=== PATIENT | female | born 1930 | race Caucasian/White ===

== ENCOUNTER 2018-10-22 12:51 | Observation (INO) | payer MEDICARE ==
[2018-10-22] MEDS ORDERED: MORPHINE SULFATE 4 MG/ML SYRINGE IV STA (13:01)
[2018-10-22] MEDS ORDERED: PANTOPRAZOLE 40 MG/10 ML VIAL IVP STA (13:01)
[2018-10-22] MEDS ORDERED: SODIUM CHLORIDE 0.9% 1,000 ML IV STA ×2 (13:01→18:57)
[2018-10-22 13:19] LABS: Basophils % (A) 1 %; Eosinophils # (A) 0.1 k/uL (0-0.7); Eosinophils % (A) 2 %; HCT 39.2 % (34.0-46.0); HGB 13.1 gm/dL (11.4-16.0); Lymphocytes # (A) 0.6 k/uL (1.0-4.8); Lymphocytes % (A) 12 %; MCH 32.1 pg (25.0-35.0); MCHC 33.4 g/dL (31.0-37.0); Mean Platelet Volume 6.2; Monocytes # (A) 0.3 k/uL (0-1.0); Monocytes % (A) 6 %; Neutrophils # (A) 3.5 k/uL (1.3-7.7); Neutrophils % (A) 77 %; Platelet Count 367 k/uL (150-450); RBC 4.08 m/uL (3.80-5.40); RDW 12.7 % (11.5-15.5); WBC 4.5 k/uL (3.8-10.6)
--- NOTE | 2018-10-22 13:21 | ED ---
Abdominal Pain HPI - General Chief Complaint: Abdominal Pain Stated Complaint: ABD pain Time Seen by Provider: 10/22/18 13:00 Source: EMS, RN notes reviewed, old records reviewed Mode of arrival: EMS Limitations: no limitations - History of Present Illness Initial Comments: This is a 87-year-old female the ER for evaluation. Patient resents today for e valuation regards to abdominal pain, abdominal pain times one week. Patient has no prior sustain denies injury. No fevers no nausea vomiting and she has decreased bowel movements times one week. Patient was seen emetics rest, steroids shot has no improvement in pain. No recent travel history no sick contacts no modifying factors for symptoms. Patient is eating appropriately with no nausea or vomiting MD Complaint: abdominal pain -: week(s) Location: diffuse, suprapubic Migration to: suprapubic Severity: moderate Severity scale (1-10): 4 Quality: cramping, aching Consistency: intermittent Improves With: bowel movement Worsens With: bowel movement - Related Data Previous Rx's Medication Instructions Recorded Polyethylene Glycol 3350 [Miralax] 17 gm PO BID #527 gm 10/22/18 Allergies Allergy/AdvReac Type Severity Reaction Status Date / Time No Known Allergies Allergy Verified 10/22/18 13:16 Review of Systems ROS Statement: Those systems with pertinent positive or pertinent negative responses have been documented in the HPI. ROS Other: All systems not noted in ROS Statement are negative. Past Medical History Past Medical History: Hypertension History of Any Multi-Drug Resistant Organisms: None Reported Past Surgical History: No Surgical Hx Reported Past Psychological History: No Psychological Hx Reported Smoking Status: Never smoker Past Alcohol Use History: None Reported Past Drug Use History: None Reported General Exam Limitations: no limitations General appearance: alert, in no apparent distress Head exam: Present: atraumatic, normocephalic, normal inspection Eye exam: Present: normal appearance, PERRL, EOMI. Absent: scleral icterus, conjunctival injection, periorbital swelling ENT exam: Present: normal exam, mucous membranes moist Neck exam: Present: normal inspection. Absent: tenderness, meningismus, ly mphadenopathy Respiratory exam: Present: normal lung sounds bilaterally. Absent: respiratory distress, wheezes, rales, rhonchi, stridor Cardiovascular Exam: Present: regular rate, normal rhythm, normal heart sounds. Absent: systolic murmur, diastolic murmur, rubs, gallop, clicks GI/Abdominal exam: Present: soft, normal bowel sounds. Absent: distended, tenderness, guarding, rebound, rigid Extremities exam: Present: normal inspection, full ROM, normal capillary refill. Absent: tenderness, pedal edema, joint swelling, calf tenderness Back exam: Present: normal inspection Neurological exam: Present: alert, oriented X3, CN II-XII intact Psychiatric exam: Present: normal affect, normal mood Skin exam: Present: warm, dry, intact, normal color. Absent: rash Course Vital Signs 10/22/18 10/22/18 10/22/18 13:11 16:00 18:14 Temperature 97.6 F Pulse Rate 76 81 75 Respiratory 16 16 18 Rate Blood Pressure 158/103 136/85 152/86 O2 Sat by Pulse 98 97 96 Oximetry - Reevaluation(s) Reevaluation #1: 10/22/18 16:55 Medical record is reviewed Reevaluation #2: 10/22/18 16:55 Patient given bowel regimen here in the ER including enema months sennosides Reevaluation #3: 10/22/18 16:55 Patient yet to have significant bowel movement here in the ER Reevaluation #4: 10/22/18 18:58 Patient bowel movement was not completely satisfactory, remains with abdominal pain and no significant bowel movement Medical Decision Making - Medical Decision Making 87 female the ER with severe constipation, patient had not had a significant bowel movement here in the ER will be placed on bowel regimen and admitted for evaluation and pain control - Lab Data Result diagrams: 10/22/18 13:02 10/22/18 13:02 Lab Results 10/22/18 10/22/18 10/22/18 Range/Units 13:02 13:02 13:02 WBC 4.5 (3.8-10.6) k/uL RBC 4.08 (3.80-5.40) m/uL Hgb 13.1 (11.4-16.0) gm/dL Hct 39.2 (34.0-46.0) % MCV 96.0 (80.0-100.0) fL MCH 32.1 (25.0-35.0) pg MCHC 33.4 (31.0-37.0) g/dL RDW 12.7 (11.5-15.5) % Plt Count 367 (150-450) k/uL Neutrophils % 77 % Lymphocytes % 12 % Monocytes % 6 % Eosinophils % 2 % Basophils % 1 % Neutrophils # 3.5 (1.3-7.7) k/uL Lymphocytes # 0.6 L (1.0-4.8) k/uL Monocytes # 0.3 (0-1.0) k/uL Eosinophils # 0.1 (0-0.7) k/uL Basophils # 0.0 (0-0.2) k/uL Sodium 137 (137-145) mmol/L Potassium 4.7 (3.5-5.1) mmol/L Chloride 101 (98-107) mmol/L Carbon Dioxide 27 (22-30) mmol/L Anion Gap 9 mmol/L BUN 14 (7-17) mg/dL Creatinine 0.66 (0.52-1.04) mg/dL Est GFR (CKD-EPI)AfAm >90 (>60 ml/min/1.73 sqM) Est GFR (CKD-EPI)NonAf 80 (>60 ml/min/1.73 sqM) Glucose 90 (74-99) mg/dL Plasma Lactic Acid Jeff (0.7-2.0) mmol/L Calcium 10.2 (8.4-10.2) mg/dL Total Bilirubin 0.7 (0.2-1.3) mg/dL AST 26 (14-36) U/L ALT 14 (9-52) U/L Alkaline Phosphatase 138 H (38-126) U/L Creatine Kinase 26 L (30-135) U/L Troponin I <0.012 (0.000-0.034) ng/mL Total Protein 7.8 (6.3-8.2) g/dL Albumin 4.5 (3.5-5.0) g/dL Amylase 61 (30-110) U/L Lipase 69 (23-300) U/L Urine Color Urine Appearance (Clear) Urine pH (5.0-8.0) Ur Specific [place] (1.001-1.035) Urine Protein (Negative) Urine Glucose (UA) (Negative) Urine Ketones (Negative) Urine Blood (Negative) Urine Nitrite (Negative) Urine Bilirubin (Negative) Urine Urobilinogen (<2.0) mg/dL Ur Leukocyte Esterase (Negative) 10/22/18 10/22/18 Range/Units 13:09 14:25 WBC (3.8-10.6) k/uL RBC (3.80-5.40) m/uL Hgb (11.4-16.0) gm/dL Hct (34.0-46.0) % MCV (80.0-100.0) fL MCH (25.0-35.0) pg MCHC (31.0-37.0) g/dL RDW (11.5-15.5) % Plt Count (150-450) k/uL Neutrophils % % Lymphocytes % % Monocytes % % Eosinophils % % Basophils % % Neutrophils # (1.3-7.7) k/uL Lymphocytes # (1.0-4.8) k/uL Monocytes # (0-1.0) k/uL Eosinophils # (0-0.7) k/uL Basophils # (0-0.2) k/uL Sodium (137-145) mmol/L Potassium (3.5-5.1) mmol/L Chloride (98-107) mmol/L Carbon Dioxide (22-30) mmol/L Anion Gap mmol/L BUN (7-17) mg/dL Creatinine (0.52-1.04) mg/dL Est GFR (CKD-EPI)AfAm (>60 ml/min/1.73 sqM) Est GFR (CKD-EPI)NonAf (>60 ml/min/1.73 sqM) Glucose (74-99) mg/dL Plasma Lactic Acid Jeff 1.0 (0.7-2.0) mmol/L Calcium (8.4-10.2) mg/dL Total Bilirubin (0.2-1.3) mg/dL AST (14-36) U/L ALT (9-52) U/L Alkaline Phosphatase (38-126) U/L Creatine Kinase (30-135) U/L Troponin I (0.000-0.034) ng/mL Total Protein (6.3-8.2) g/dL Albumin (3.5-5.0) g/dL Amylase (30-110) U/L Lipase (23-300) U/L Urine Color Colorless Urine Appearance Clear (Clear) Urine pH 8.0 (5.0-8.0) Ur Specific [place] 1.010 (1.001-1.035) Urine Protein Negative (Negative) Urine Glucose (UA) Negative (Negative) Urine Ketones Negative (Negative) Urine Blood Negative (Negative) Urine Nitrite Negative (Negative) Urine Bilirubin Negative (Negative) Urine Urobilinogen <2.0 (<2.0) mg/dL Ur Leukocyte Esterase Negative (Negative) - EKG Data -: EKG Interpreted by Me (EKG shows sinus rhythm rate of 60, HI 180, QRS 106, QTc 407) - Radiology Data Radiology results: report reviewed (CT abdomen pelvis show significant constipation), image reviewed Disposition Clinical Impression: Abdominal pain, Constipation Disposition: ADMITTED IP TO THIS [facility] Condition: Good Instructions (If sedation given, give patient instructions): Constipation (ED) Prescriptions: Polyethylene Glycol 3350 [Miralax] 17 gm PO BID #527 gm Is patient prescribed a controlled substance at d/c from ED?: No Referrals: Nando Velazquez MD [Primary Care Provider] - 1-2 days
[2018-10-22 13:28] LABS: ALT 14 U/L (9-52); AST 26 U/L (14-36); African American GFR (CKD) >90 (>60 ml/min/1.73 sqM); Albumin 4.5 g/dL (3.5-5.0); Alkaline Phosphatase 138 U/L (38-126); Amylase 61 U/L (30-110); Anion Gap 9 mmol/L; Blood Urea Nitrogen 14 mg/dL (7-17); Calcium 10.2 mg/dL (8.4-10.2); Carbon Dioxide 27 mmol/L (22-30); Chloride 101 mmol/L (98-107); Creatine Kinase 26 U/L (30-135); Glucose 90 mg/dL (74-99); Lipase 69 U/L (23-300); Potassium 4.7 mmol/L (3.5-5.1); Sodium 137 mmol/L (137-145); Total Bilirubin 0.7 mg/dL (0.2-1.3); Total Protein 7.8 g/dL (6.3-8.2)
--- NOTE | 2018-10-22 14:31 | CT ---
EXAMINATION TYPE: CT abdomen pelvis w con DATE OF EXAM: 10/22/2018 COMPARISON: 08/31/2013 HISTORY: Generalized abdominal and back pain. CT DLP: 516.7 mGycm CONTRAST: CT scan of the abdomen and pelvis is performed without Oral Contrast and with IV Contrast, patient in jected with 100 mL of Isovue 300. FINDINGS: LUNG BASES-: No visible nodule. No infiltrate. LIVER/GB: No calcified gallstones. No space occupying hepatic lesion. Biliary tree is of normal ca liber. PANCREAS: No inflammation. No distinct mass. SPLEEN: No splenic enlargement. No lesion seen. ADRENALS: No nodule. No thickening. KIDNEYS/BLADDER: No hydronephrosis. No nephrolithiasis. No distinct renal mass. Urinary bladder g rossly unremarkable. BOWEL: The appendix is not clearly visualized. Moderately severe constipation seen throughout the col on. Mild small bowel distention. No obstructive change. No free air or abscess identified. GENITAL ORGANS: No gross abnormality. LYMPH NODES: No greater than 1cm abdominal or pelvic lymph nodes are appreciated. AORTA: No significant abnormality. OSSEOUS STRUCTURES: Severe compression fractures of uncertain age and/or etiology of T12, L1 and L2 a nd moderate fracture of L5. Mild bony retropulsion noted at each site. No evidence for paraspinal hem atoma OTHER: No significant additional abnormality is seen. IMPRESSION: 1. Moderately severe constipation. 2. Severe compression fractures of uncertain age and/or etiology of T12, L1 and L2 and moderate fract ure of L5. Mild bony retropulsion noted at each site.
[2018-10-22] MEDS ORDERED: MAGNESIUM CITRATE 296 ML BOTTLE PO ONE (15:12)
[2018-10-22] MEDS ORDERED: SENNOSIDES-DOCUSATE SODIUM 1 EACH TAB PO STA (15:12)
[2018-10-22 15:34] LABS: Appearance,Urine Clear (Clear); Bilirubin,Urine Negative (Negative); Blood,Urine Negative (Negative); Color,Urine Colorless; Glucose,Urine (UA) Negative (Negative); Ketones,Urine Negative (Negative); Leukocyte Esterase,Urine Negative (Negative); Nitrite,Urine Negative (Negative); Protein,Urine Negative (Negative); Urobilinogen,Urine <2.0 mg/dL (<2.0)
[2018-10-22] MEDS ORDERED: SODIUM CHLORIDE 0.9% 1,000 ML IV ONE (18:55)
[2018-10-22] MEDS ORDERED: LACTULOSE 20 GM/30 ML CUP PO ONE (18:55)
[2018-10-22] MEDS ORDERED: SODIUM CHLORIDE 0.9% 500 ML 500 ML IV STA (18:57)
[2018-10-22 20:42] VITALS: BMI 20.9
[2018-10-22] MEDS: SENNOSIDES-DOCUSATE SODIUM 1 EACH TAB PO SCH (21:13)
[2018-10-22] MEDS: POLYETHYLENE GLYCOL 3350 17 GM POWD.PACK PO SCH (21:13)
[2018-10-23 08:09] VITALS: BP 138/78; PULSE 81; RESP 16; TEMP 98.2
[2018-10-23] MEDS: POLYETHYLENE GLYCOL 3350 17 GM POWD.PACK PO SCH (08:36)
[2018-10-23] MEDS: SENNOSIDES-DOCUSATE SODIUM 1 EACH TAB PO SCH (08:36)
[2018-10-23] MEDS ORDERED: POLYETHYLENE GLYCOL 3350 17 GM POWD.PACK PO SCH (09:00)
[2018-10-23] MEDS ORDERED: amLODIPine 10 MG TAB PO SCH (12:15)
[2018-10-23] MEDS ORDERED: ASPIRIN 81 MG PO SCH (12:15)
[2018-10-23] MEDS ORDERED: HYDROCHLOROTHIAZIDE 25 MG TAB PO SCH (12:15)
--- NOTE | 2018-10-23 12:23 | P.HPIM ---
History of Present Illness H&P Date: 10/23/18 Chief Complaint: constipation History of physical and discharge summary. This is an 87-year-old female one of Dr. Denton a previous medical history significant for hypertension and hypertensive cardiovascular disease with left ventricular hypertrophy, hyperlipidemia, history of esophageal stricture, overactive bladder, patient was scheduled to go for swallow evaluation and possible EGD and dilatation on , patient was brought into the emergency department yesterday because of significant constipation increased abdominal pain that lasted for about 1 week she stated that her last bowel movement was greater than 2 weeks ago but upon interviewing her daughter she stated that she did have a small bowel movement few days ago however she has been struggling with constipation for so many years and she has been slacking on taking her MiraLAX and stool softener and regular basis. Patient was given 2 enemas in the emergency department as well as magnesium citrate and milk of magnesia and she was given Dulcolax suppositories as well but she has not had a bowel movement for 7 hours while she is in the [facility] ended up getting admitted to the hospital for observation until she does have a bowel movement, she did have a computed tomography scan of the abdomen and pelvis that didn't show evidence of moderate constipation without evidence of any acute bowel obstruction, she did also have evidence of old lumbar vertebra fracture push the patient is aware off. Review of Systems Constitutional: Reports chronic pain, Reports fatigue, Reports weakness, Denies anorexia, Denies chronic headaches Eyes: denies blurred vision, denies bulging eye, denies decreased vision Ears: bilateral: decreased hearing Ears, nose, mouth and throat: Denies dysphagia, Denies neck lump, Denies swelling in throat, Denies sore throat Cardiovascular: Denies chest pain, Denies decreased exercise tolerance, Denies dyspnea on exertion, Denies lightheadedness, Denies rapid heart beat, Denies shortness of breath Respiratory: Denies congestion, Denies cough, Denies cough with sputum, Denies home oxygen, Denies sleep apnea, Denies snoring, Denies wheezing Gastrointestinal: Reports abdominal pain, Reports bloating, Denies coffee ground emesis, Denies excessive gas, Denies heartburn, Denies melena, Denies nausea, Denies vomiting Genitourinary: Denies dysuria, Denies hematuria Menstruation: Reports postmenopausal Musculoskeletal: Reports atrophy, Reports frequent falls, Reports gait dysfunction, Reports low back pain Musculoskeletal: absent: ankle pain, ankle stiffness, ankle swelling, elbow pain, elbow stiffness, elbow swelling, foot pain, foot stiffness, foot swelling, hand pain, hand stiffness, hand swelling, hip pain, hip stiffness, hip swelling, knee pain, knee stiffness, knee swelling, shoulder pain, shoulder stiffness, shoulder swelling, wrist pain, wrist stiffness, wrist swelling Integumentary: Denies pruritus, Denies rash Neurological: Denies numbness, Denies weakness Psychiatric: Denies anxiety, Denies depression Endocrine: Denies fatigue, Denies weight change Past Medical History Past Medical History: Coronary Artery Disease (CAD), GERD/Reflux, Hypertension, Myocardial Infarction ([place]), Osteoarthritis (OA) Additional Past Medical History / Comment(s): "esophagus stricture-appointment next thursday to widen it." Hypertension and hypertensive cardiovascular disease, overactive bladder, osteo-arthritis, esophageal stricture, CAD, [place], hard of hearing. Lumbar vertebra fracture spray History of Any Multi-Drug Resistant Organisms: None Reported Past Surgical History: Hysterectomy Additional Past Surgical History / Comment(s): Left arm ORIF. Bladder suspension surgery 2, hysterectomy, cataract surgery 2. Past Anesthesia/Blood Transfusion Reactions: No Reported Reaction Past Psychological History: No Psychological Hx Reported Smoking Status: Never smoker Past Alcohol Use History: None Reported Past Drug Use History: None Reported - Past Family History Mother Family Medical History: Coronary Artery Disease (CAD) (Mother at age of 88 from CAD.) Father Family Medical History: Cancer (Father at age 85 from prostate cancer.) Brother(s) Family Medical History: Blood Disorder (Patient had 3 brothers 2 of them from blood disorders and the other one from Alzheimer dementia.) Sister(s) Family Medical History: Cancer (Patient had 3 sisters one with colon cancer one from a supposes and the other one from heart disease.) Daughter(s) Family Medical History: No Reported History (Patient has one daughter who is healthy.) Son(s) Family Medical History: Coronary Artery Disease (CAD) (Patient has one son with CAD, CABG, and COPD.) Medications and Allergies Home Medications Medication Instructions Recorded Confirmed Type Aspirin [Rowan Aspirin EC] 81 mg PO DAILY 10/22/18 10/22/18 History Cholecalciferol (Vitamin D3) 5,000 unit PO DAILY 10/22/18 10/22/18 History [Vitamin D3] Dexamethasone 4 mg PO DAILY 10/22/18 10/22/18 History Famotidine 20 mg PO DAILY 10/22/18 10/22/18 History Hydrochlorothiazide 25 mg PO Q48H 10/22/18 10/22/18 History Mirabegron [Myrbetriq] 50 mg PO DAILY 10/22/18 10/22/18 History amLODIPine [Norvasc] 10 mg PO DAILY 10/22/18 10/22/18 History fentaNYL 12MCG/HR PATCH [Duragesic 1 patch TRANSDERM Q72H 10/22/18 10/22/18 History 12MCG/HR] traMADol HCL [Ultram] 25 mg PO TID 10/22/18 10/22/18 History Allergies Allergy/AdvReac Type Severity Reaction Status Date / Time No Known Allergies Allergy Verified 10/22/18 19:29 Physical Exam Vitals: Vital Signs Temp Pulse Pulse Resp BP BP Pulse Ox 10/23/18 08:00 98.2 F 81 16 138/78 95 10/23/18 03:14 18 10/22/18 23:48 97.7 F 82 18 157/70 97 10/22/18 23:47 17 10/22/18 20:00 97.9 F 76 16 170/72 97 10/22/18 19:24 17 10/22/18 18:14 75 18 152/86 96 10/22/18 16:00 81 16 136/85 97 10/22/18 13:11 97.6 F 76 16 158/103 98 Intake and Output 10/22/18 10/23/18 10/23/18 22:59 06:59 14:59 Output Total 1 5 Balance -1 -5 Output: Urine 2 Stool 1 3 Other: Voiding Method Bedside Commode Bedside Commode # Voids 1 1 1 # Bowel Movements 1 - Constitutional General appearance: mild distress, thin - EENT Eyes: anicteric sclerae, EOMI, PERRLA, no ptosis, no scleral icterus, normal appearance ENT: hard of hearing, NA/AT, normal oropharynx, no thrush Ears: bilateral: normal - Neck Neck: no lymphadenopathy, normal ROM, no rigidity, no stridor, no thyromegaly Carotids: bilateral: upstroke delayed Thyroid: bilateral: normal size - Respiratory Respiratory: bilateral: diminished, negative: dullness, rales, rhonchi, wheezing, prolonged expiration, prolonged inspiration - Cardiovascular Rhythm: regular Heart sounds: normal: S1, S2 Abnormal Heart Sounds: systolic murmur, no S3 Gallop, no S4 Gallop, no click - Gastrointestinal General gastrointestinal: normal bowel sounds, soft, no tenderness, no umbilical hernia, no ventral hernia - Integumentary Integumentary: normal, normal turgor - Neurologic Neurologic: CNII-XII intact - Musculoskeletal Musculoskeletal: generalized weakness, strength equal bilaterally - Psychiatric Psychiatric: A&O x's 3, appropriate affect, intact judgment & insight Results CBC & Chem 7: 10/22/18 13:02 10/22/18 13:02 Labs: Abnormal Lab Results - Last 24 Hours (Table) 10/22/18 10/22/18 Range/Units 13:02 13:02 Lymphocytes # 0.6 L (1.0-4.8) k/uL Alkaline Phosphatase 138 H (38-126) U/L Creatine Kinase 26 L (30-135) U/L Microbiology - Last 24 Hours (Table) 10/22/18 14:25 Urine Culture - Preliminary Urine,Voided Thrombosis Risk Factor Assmnt - DVT/VTE Prophylaxis DVT/VTE Prophylaxis: Mechanical Prophylaxis ordered - Choose All That Apply Any of the Below Risk Factors Present?: No Each Risk Factor Represents 3 Points: Age 75 years or older Other congenital or acquired thrombophilia - If yes, enter type in comment: No Thrombosis Risk Factor Assessment Total Risk Factor Score: 3 Thrombosis Risk Factor Assessment Level: Moderate Risk Assessment and Plan Assessment: Assessment and plan: 1. Moderate to severe constipation post the significant bowel regimen including enemas and magnesium citrate and milk of magnesia with finally good result. I had spoken with her daughter recommended MiraLAX every day along with Dulcolax to every day and stool softener daily basis as well and she is to follow-up with us in the office to start her on Symproic to the care of opioid-induced constip ation. 2. Hypertension and hypertensive cardio vascular disease. Continue patient on amlodipine 10 mg once every day and hydrochlorothiazide 25 mg orally once every day. 3. Osteoarthritis. Continue current pain management. 4. Osteoporosis with compression fracture in the lumbar vertebrae with chronic pain management currently on fentanyl patch as well as tramadol along with dexamethasone. 5. Overactive bladder. Continue with current management. 6. Esophageal stricture. Follow-up with GI as an outpatient on for possible EGD and the patient. 7. Patient is stable to be discharged home. 8. Follow-up with us as an outpatient in the office next Thursday.
[2018-10-23] MEDS ORDERED: traMADol 50 MG TAB PO SCH (16:00)
[2018-10-24] MEDS ORDERED: CHOLECALCIFEROL 1,000 UNIT TAB PO SCH (09:00)
[2018-10-24] MEDS ORDERED: FAMOTIDINE 20 MG TAB PO SCH (09:00)
[2018-10-24] MEDS ORDERED: DEXAMETHASONE 4 MG TAB PO SCH (09:00)
[2018-10-24] MEDS ORDERED: NON-FORMULARY DRUG (Mirabegron [Myrbetriq] 50 MG) PO SCH (09:00)
== END 2018-10-23 14:53 | disposition home or self-care (01) ==
LOC: EC 12:51 → 1SOBS 18:56
PROVIDERS: ADMIT Internal Medicine; ATTEND Internal Medicine
DX: K59.03 Drug induced constipation (principal); T40.2X5A Adverse effect of other opioids, initial encounter; I11.9 Hypertensive heart disease without heart failure; E78.5 Hyperlipidemia, unspecified; M80.08XA Age-related osteoporosis with current pathological fracture, vertebra(e), initial encounter for fracture; M19.90 Unspecified osteoarthritis, unspecified site; K21.9 Gastro-esophageal reflux disease without esophagitis; I25.10 Atherosclerotic heart disease of native coronary artery without angina pectoris; G89.29 Other chronic pain; M54.5 Low back pain; H91.90 Unspecified hearing loss, unspecified ear; K22.2 Esophageal obstruction; N32.81 Overactive bladder; I25.2 Old myocardial infarction; Z79.82 Long term (current) use of aspirin; Z79.891 Long term (current) use of opiate analgesic; Z79.52 Long term (current) use of systemic steroids; Z79.899 Other long term (current) drug therapy; Z90.710 Acquired absence of both cervix and uterus; Z98.42 Cataract extraction status, left eye; Z98.41 Cataract extraction status, right eye; Z82.49 Family history of ischemic heart disease and other diseases of the circulatory system; Z80.42 Family history of malignant neoplasm of prostate; Z80.0 Family history of malignant neoplasm of digestive organs; Z83.2 Family history of diseases of the blood and blood-forming organs and certain disorders involving the immune mechanism; Z82.5 Family history of asthma and other chronic lower respiratory diseases
CPT/HCPCS: 96360; 96361; 99285; 36415; 80053; 82150; 82550; 83605; 83690; 84484 ×2; 85025; 81003; 87086; 74177; G0378 ×2; Q9967

== ENCOUNTER 2019-10-15 07:33 | Inpatient (IN) | payer MEDICARE ==
--- NOTE | 2019-10-15 07:49 | ED ---
Fall HPI - General Source: patient, EMS, RN notes reviewed Mode of arrival: EMS Limitations: physical limitation <Isidro Hamilton - Last Filed: 10/15/19 08:33> <Osvaldo Talbert - Last Filed: 10/15/19 10:02> - General Chief Complaint: Fall Stated Complaint: Fall, R hip Injury Time Seen by Provider: 10/15/19 07:41 - History of Present Illness Initial Comments: This is an 88-year-old female presents emergency Department chief complaint of a trip and fall. She states she had a mechanical fall onto her right hip. Patiyandel nt states that she has pain on inside of her right hip. She does complain of mild head pain does not remember hitting it. Patient does have an area of bruising. Denies any blurred vision. Patient has no complaints of upper extremity injury, back pain. She denies knowing if she takes a blood thinner at this time. Denies any paresthesias. Denies any syncopal episode no chest pain or shortness breath. Patient states that her pain is very mild, does not want any pain minutes at time states she is taking at home. (Isidro Hamilton) - Related Data Home Medications Medication Instructions Recorded Confirmed Aspirin [[place] Aspirin EC] 81 mg PO DAILY 10/22/18 10/22/18 Cholecalciferol (Vitamin D3) 5,000 unit PO DAILY 10/22/18 10/22/18 [Vitamin D3] Dexamethasone 4 mg PO DAILY 10/22/18 10/22/18 Famotidine 20 mg PO DAILY 10/22/18 10/22/18 Hydrochlorothiazide 25 mg PO Q48H 10/22/18 10/22/18 Mirabegron [Myrbetriq] 50 mg PO DAILY 10/22/18 10/22/18 amLODIPine [Norvasc] 10 mg PO DAILY 10/22/18 10/22/18 fentaNYL 12MCG/HR PATCH [Duragesic 1 patch TRANSDERM Q72H 10/22/18 10/22/18 12MCG/HR] traMADol HCL [Ultram] 25 mg PO TID 10/22/18 10/22/18 Previous Rx's Medication Instructions Recorded Polyethylene Glycol 3350 [Miralax] 17 gm PO BID powd.pack 10/23/18 Sennosides-Docusate Sodium 1 each PO BID tab 10/23/18 [Senokot-S] Allergies Allergy/AdvReac Type Severity Reaction Status Date / Time No Known Allergies Allergy Verified 10/22/18 19:29 Review of Systems ROS Other: All systems not noted in ROS Statement are negative. <Isidro Hamilton - Last Filed: 10/15/19 08:33> ROS Other: All systems not noted in ROS Statement are negative. <Osvaldo Talbert - Last Filed: 10/15/19 10:02> ROS Statement: Those systems with pertinent positive or pertinent negative responses have been documented in the HPI. Past Medical History Past Medical History: Coronary Artery Disease (CAD), GERD/Reflux, Hypertension, Myocardial Infarction ([place]), Osteoarthritis (OA) Additional Past Medical History / Comment(s): "esophagus stricture-appointment next thursday to widen it." Hypertension and hypertensive cardiovascular disease, overactive bladder, osteo-arthritis, esophageal stricture, CAD, [place], hard of hearing. Lumbar vertebra fracture spray History of Any Multi-Drug Resistant Organisms: None Reported Past Surgical History: Hysterectomy Additional Past Surgical History / Comment(s): Left arm ORIF. Bladder suspension surgery 2, hysterectomy, cataract surgery 2. Past Anesthesia/Blood Transfusion Reactions: No Reported Reaction Past Psychological History: No Psychological Hx Reported Smoking Status: Never smoker Past Alcohol Use History: None Reported Past Drug Use History: None Reported - Past Family History Mother Family Medical History: Coronary Artery Disease (CAD) (Mother at age of 88 from CAD.) Father Family Medical History: Cancer (Father at age 85 from prostate cancer.) Brother(s) Family Medical History: Blood Disorder (Patient had 3 brothers 2 of them from blood disorders and the other one from Alzheimer dementia.) Sister(s) Family Medical History: Cancer (Patient had 3 sisters one with colon cancer one from a supposes and the other one from heart disease.) Daughter(s) Family Medical History: No Reported History (Patient has one daughter who is healthy.) Son(s) Family Medical History: Coronary Artery Disease (CAD) (Patient has one son with CAD, CABG, and COPD.) <Isidro Hamilton - Last Filed: 10/15/19 08:33> General Exam Limitations: no limitations General appearance: alert, in no apparent distress Head exam: Present: atraumatic, normocephalic. Absent: normal inspection (Small hematoma on the right side of forehead) Eye exam: Present: normal appearance, PERRL, EOMI. Absent: scleral icterus, conjunctival injection, periorbital swelling Neck exam: Present: normal inspection, full ROM. Absent: tenderness, meningismus, lymphadenopathy Respiratory exam: Present: normal lung sounds bilaterally. Absent: respiratory distress, wheezes, rales, rhonchi, stridor Cardiovascular Exam: Present: regular rate, normal rhythm, normal heart sounds. Absent: systolic murmur, diastolic murmur, rubs, gallop, clicks Extremities exam: Present: other (Tenderness the right hip there is mild external rotation noted pulses equal bilaterally lower extremities.) Neurological exam: Present: alert, oriented X3, CN II-XII intact, reflexes normal. Absent: motor sensory deficit Skin exam: Present: warm, dry, intact, normal color. Absent: rash <Isidro Hamilton - Last Filed: 10/15/19 08:33> Course Vital Signs 10/15/19 10/15/19 10/15/19 07:35 08:00 08:30 Temperature 98.2 F Pulse Rate 75 70 72 Respiratory 18 17 17 Rate Blood Pressure 173/72 173/72 O2 Sat by Pulse 96 95 95 Oximetry 10/15/19 10/15/19 09:00 09:30 Temperature Pulse Rate 74 71 Respiratory 17 17 Rate Blood Pressure 149/65 158/64 O2 Sat by Pulse 95 95 Oximetry Medical Decision Making <Isidro Hamilton - Last Filed: 10/15/19 08:33> - Lab Data Result diagrams: 10/15/19 08:52 10/15/19 08:52 <Osvaldo Talbert - Last Filed: 10/15/19 10:02> - Medical Decision Making Case discussed with neck branch on-call for Dr. Gar recommends patient be admitted, consult to medicine (Isidro Hamilton) Patient reevaluated and reexamined by myself, Dr. Talbert. I do agree with PAs findings. This includes diagnostic interpretation treatment plan. Patient updated. Films reviewed. (Osvaldo Talbert) - Lab Data Lab Results 10/15/19 10/15/19 10/15/19 Range/Units 08:52 08:52 08:52 WBC 5.0 (3.8-10.6) k/uL RBC 3.76 L (3.80-5.40) m/uL Hgb 12.1 (11.4-16.0) gm/dL Hct 38.6 (34.0-46.0) % MCV 102.4 H (80.0-100.0) fL MCH 32.0 (25.0-35.0) pg MCHC 31.3 (31.0-37.0) g/dL RDW 12.3 (11.5-15.5) % Plt Count 340 (150-450) k/uL Neutrophils % 78 % Lymphocytes % 12 % Monocytes % 5 % Eosinophils % 3 % Basophils % 1 % Neutrophils # 3.9 (1.3-7.7) k/uL Lymphocytes # 0.6 L (1.0-4.8) k/uL Monocytes # 0.3 (0-1.0) k/uL Eosinophils # 0.1 (0-0.7) k/uL Basophils # 0.0 (0-0.2) k/uL PT 10.7 (9.0-12.0) sec INR 1.0 (<1.2) APTT 24.6 (22.0-30.0) sec Sodium 133 L (137-145) mmol/L Potassium 3.7 (3.5-5.1) mmol/L Chloride 97 L (98-107) mmol/L Carbon Dioxide 29 (22-30) mmol/L Anion Gap 7 mmol/L BUN 20 H (7-17) mg/dL Creatinine 0.68 (0.52-1.04) mg/dL Est GFR (CKD-EPI)AfAm >90 (>60 ml/min/1.73 sqM) Est GFR (CKD-EPI)NonAf 79 (>60 ml/min/1.73 sqM) Glucose 103 H (74-99) mg/dL Calcium 9.1 (8.4-10.2) mg/dL Total Bilirubin 0.3 (0.2-1.3) mg/dL AST 30 (14-36) U/L ALT 14 (4-34) U/L Alkaline Phosphatase 118 (38-126) U/L Total Protein 7.0 (6.3-8.2) g/dL Albumin 3.3 L (3.5-5.0) g/dL Disposition <Dedoe,Isidro M - Last Filed: 10/15/19 08:33> <Osvaldo Talbert - Last Filed: 10/15/19 10:02> Clinical Impression: Fall, Closed right hip fracture Disposition: ADMITTED IP TO THIS HOSP Condition: Fair Referrals: Nando Velazquez MD [Primary Care Provider] - 1-2 days
[2019-10-15] MEDS ORDERED: ONDANSETRON 4 MG/2 ML VIAL IVP PRN (08:33)
[2019-10-15] MEDS ORDERED: NALOXONE 0.4 MG/ML 1 ML VIAL IV PRN (08:33)
--- NOTE | 2019-10-15 08:50 | XR ---
EXAMINATION TYPE: XR Hip RT and AP Pelvis , 3 VIEWS DATE OF EXAM ORDERED: 10/15/2019 HISTORY: fall, pain. COMPARISON: None. FINDINGS: The bones are quite osteopenic, likely on the basis of osteoporosis. The right hip is inad equately assessed on this examination. It would be difficult to exclude a subcapital fracture. IMPRESSION: STUDY LIMITED BY EXTREME OSTEOPENIA. A CT SCAN OF THE RIGHT HIP WOULD BE SUGGESTED.
--- NOTE | 2019-10-15 08:53 | XR ---
EXAMINATION TYPE: XR chest 1V DATE OF EXAM: 10/15/2019 HISTORY: FALL. REFERENCE: NONE. FINDINGS: The lungs are overinflated. The heart is enlarged. There is vascular congestion without fra nk edema. There is some atelectatic change of both lungs. There is blunting of the right CP angle. I could not exclude a small right effusion. IMPRESSION: 1. COPD. 2. CARDIOMEGALY. 3. I COULD NOT EXCLUDE A SMALL RIGHT EFFUSION. 4. VASCULAR CONGESTION.
--- NOTE | 2019-10-15 09:03 | CT ---
EXAMINATION TYPE: CT brain wilmerine wo con DATE OF EXAM: 10/15/2019 COMPARISON: NONE HISTORY: Fall, bruising Rt forehead area CT DLP: 1292.6 mGycm Automated exposure control for dose reduction was used. TECHNIQUE: CT scan of the head and cervical spine are performed without contrast. FINDINGS: BRAIN: There are generalized changes of sulcal prominence and ventriculomegaly, compatible with atrop hy. There is diffuse periventricular white matter lucency compatible with small vessel ischemic waters e. There is no acute focal lesion, mass effect or midline shift identified. I do not see evidence of intracranial blood. Visualized portions of the paranasal sinuses and mastoids are clear. The bony calvarium is intact. IMPRESSION: 1. NO ACUTE INTRACRANIAL ABNORMALITY. 2. ATROPHY. 3. CHRONIC WHITE MATTER ISCHEMIC CHANGE. CERVICAL SPINE: There is scarring or atelectasis in the upper lobes bilaterally. There is ectasia of the ascending thoracic aorta with maximal transverse diameter 3.1 cm. The trachea is bowed around the aorta. There is extreme kyphosis within the spine. This study is inadequate to assess for protrusions. Verte bral body height and alignment is maintained. Atlantoaxial relationships are normal. No gross fractur e is seen but 2 axial views of the spine were not obtained. Views obtained are largely coronal. There is degenerative change, most marked at C6-7. IMPRESSION: 1. 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 2. DEGENERATIVE CHANGE. 3. NO GROSS FRACTURE IS SEEN.
[2019-10-15 09:08] LABS: Basophils % (A) 1 %; Eosinophils # (A) 0.1 k/uL (0-0.7); Eosinophils % (A) 3 %; HCT 38.6 % (34.0-46.0); HGB 12.1 gm/dL (11.4-16.0); Lymphocytes # (A) 0.6 k/uL (1.0-4.8); Lymphocytes % (A) 12 %; MCHC 31.3 g/dL (31.0-37.0); MCV 102.4 fL (80.0-100.0); Mean Platelet Volume 6.7; Monocytes # (A) 0.3 k/uL (0-1.0); Monocytes % (A) 5 %; Neutrophils # (A) 3.9 k/uL (1.3-7.7); Neutrophils % (A) 78 %; Platelet Count 340 k/uL (150-450); RBC 3.76 m/uL (3.80-5.40); RDW 12.3 % (11.5-15.5)
--- NOTE | 2019-10-15 09:16 | CT ---
EXAMINATION TYPE: CT hip RT wo con DATE OF EXAM: 10/15/2019 COMPARISON: None. HISTORY: Right hip fracture/inury CT DLP: 366 mGycm Automated exposure control for dose reduction was used. FINDINGS: There is a mildly displaced and comminuted intertrochanteric fracture of the right. The les ser trochanter has been avulsed. The acetabulum appears intact. There is a large amount of stool within the colon. IMPRESSION: MILDLY DISPLACED AND COMMINUTED INTERTROCHANTERIC FRACTURE OF THE RIGHT.
[2019-10-15 09:21] LABS: Partial Thromboplastin Time 24.6 sec (22.0-30.0); Prothrombin Time 10.7 sec (9.0-12.0)
[2019-10-15 09:28] LABS: ALT 14 U/L (4-34); AST 30 U/L (14-36); African American GFR (CKD) >90 (>60 ml/min/1.73 sqM); Albumin 3.3 g/dL (3.5-5.0); Alkaline Phosphatase 118 U/L (38-126); Anion Gap 7 mmol/L; Blood Urea Nitrogen 20 mg/dL (7-17); Calcium 9.1 mg/dL (8.4-10.2); Carbon Dioxide 29 mmol/L (22-30); Chloride 97 mmol/L (98-107); Glucose 103 mg/dL (74-99); Non-African American GFR(CKD) 79 (>60 ml/min/1.73 sqM); Potassium 3.7 mmol/L (3.5-5.1); Sodium 133 mmol/L (137-145); Total Bilirubin 0.3 mg/dL (0.2-1.3)
--- NOTE | 2019-10-15 11:15 | P.CONS ---
History of Present Illness - Reason for Consult Consult date: 10/15/19 Medical management - History of Present Illness This is a 88-year-old patient of Dr. Denton'rudy being seen in the emergency room following a fall at [facility]. Patient was getting up from her wheelchair to ambulate to the bathroom when she tripped over the wheelchair landing on her right hip. While patient was lying on the floor she experienced severe right groin and hip pain. Patient was found to have right hip shortened and externally rotated. She will possibly have surgery tomorrow. Patient is also complaining of head discomfort. However she does not remember hitting her head. Patient denies loss of consciousness or syncope prior to the fall. 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 The sentinel patch was recently increased to 25 mcg/hour however she has not started the new patch. Review of Systems Constitutional: Reports chronic pain, Denies chills, Denies chronic headaches, Denies fatigue, Denies fever Eyes: denies blurred vision, denies pain Ears: bilateral: decreased hearing Ears, nose, mouth and throat: Reports headache, Denies sore throat Cardiovascular: Denies chest pain, Denies shortness of breath Respiratory: Denies cough Gastrointestinal: Denies abdominal pain, Denies diarrhea, Denies nausea, Denies vomiting Genitourinary: Denies dysuria, Denies hematuria Musculoskeletal: Reports fractures, Reports frequent falls, Reports limitation of motion, Reports low back pain Musculoskeletal: right: hip pain Integumentary: Denies pruritus, Denies rash Neurological: Denies numbness, Denies weakness Psychiatric: Denies anxiety, Denies depression Endocrine: Denies fatigue, Denies weight change Hematologic/Lymphatic: Denies easy bleeding, Denies easy bruising Past Medical History Past Medical History: Coronary Artery Disease (CAD), GERD/Reflux, Hypertension, Myocardial Infarction ([place]), Osteoarthritis ([place]) Additional Past Medical History / Comment(s): "esophagus stricture-appointment next thursday to widen it." Hypertension and hypertensive cardiovascular disease, overactive bladder, osteo-arthritis, esophageal stricture, CAD, [place], hard of hearing. Lumbar vertebra fracture spray History of Any Multi-Drug Resistant Organisms: None Reported Past Surgical History: Hysterectomy Additional Past Surgical History / Comment(s): Left arm ORIF. Bladder suspension surgery 2, hysterectomy, cataract surgery 2. Past Anesthesia/Blood Transfusion Reactions: No Reported Reaction Past Psychological History: No Psychological Hx Reported Smoking Status: Never smoker Past Alcohol Use History: None Reported Past Drug Use History: None Reported - Past Family History Mother Family Medical History: Coronary Artery Disease (CAD) (Mother at age of 88 from CAD.) Father Family Medical History: Cancer (Father at age 85 from prostate cancer.) Brother(s) Family Medical History: Blood Disorder (Patient had 3 brothers 2 of them from blood disorders and the other one from Alzheimer dementia.) Sister(s) Family Medical History: Cancer (Patient had 3 sisters one with colon cancer one from a supposes and the other one from heart disease.) Daughter(s) Family Medical History: No Reported History (Patient has one daughter who is healthy.) Son(s) Family Medical History: Coronary Artery Disease (CAD) (Patient has one son with CAD, CABG, and COPD.) Medications and Allergies Home Medications Medication Instructions Recorded Confirmed Type Aspirin [[place] Aspirin EC] 81 mg PO DAILY 10/22/18 10/22/18 History Cholecalciferol (Vitamin D3) 5,000 unit PO DAILY 10/22/18 10/22/18 History [Vitamin D3] Dexamethasone 4 mg PO DAILY 10/22/18 10/22/18 History Famotidine 20 mg PO DAILY 10/22/18 10/22/18 History Hydrochlorothiazide 25 mg PO Q48H 10/22/18 10/22/18 History Mirabegron [Myrbetriq] 50 mg PO DAILY 10/22/18 10/22/18 History amLODIPine [Norvasc] 10 mg PO DAILY 10/22/18 10/22/18 History fentaNYL 12MCG/HR PATCH [Duragesic 1 patch TRANSDERM Q72H 10/22/18 10/22/18 History 12MCG/HR] traMADol HCL [Ultram] 25 mg PO TID 10/22/18 10/22/18 History Polyethylene Glycol 3350 [Miralax] 17 gm PO BID powd.pack 10/23/18 Rx Sennosides-Docusate Sodium 1 each PO BID tab 10/23/18 Rx [Senokot-S] Allergies Allergy/AdvReac Type Severity Reaction Status Date / Time No Known Allergies Allergy Verified 10/22/18 19:29 Physical Exam Vitals: Vital Signs Temp Pulse Resp BP Pulse Ox 10/15/19 09:30 71 17 158/64 95 10/15/19 09:00 74 17 149/65 95 10/15/19 08:30 72 17 95 10/15/19 08:00 70 17 173/72 95 10/15/19 07:35 98.2 F 75 18 173/72 96 Intake and Output 10/14/19 10/15/19 10/15/19 22:59 06:59 14:59 Other: Weight 43.091 kg - Constitutional General appearance: cooperative, mild distress - EENT Eyes: PERRLA ENT: hearing grossly normal Ears: bilateral: normal - Neck Neck: no lymphadenopathy - Respiratory Respiratory: bilateral: CTA, negative: diminished, dullness, rales, rhonchi, wheezing - Cardiovascular Rhythm: regular Heart sounds: normal: S1, S2 Abnormal Heart Sounds: no systolic murmur, no diastolic murmur, no rub, no S3 Gallop, no S4 Gallop, no click, no other - Gastrointestinal General gastrointestinal: no organomegaly, soft, no tenderness - Integumentary Integumentary: no cellulitis, decreased turgor, normal - Neurologic Neurologic: CNII-XII intact - Musculoskeletal Right lower extremity shortened with external rotation tenderness to right hip pulses palpable bilaterally - Psychiatric Psychiatric: A&O x's 3, appropriate affect, intact judgment & insight Results CBC & Chem 7: 10/15/19 08:52 10/15/19 08:52 Labs: Abnormal Lab Results - Last 24 Hours (Table) 10/15/19 10/15/19 Range/Units 08:52 08:52 RBC 3.76 L (3.80-5.40) m/uL MCV 102.4 H (80.0-100.0) fL Lymphocytes # 0.6 L (1.0-4.8) k/uL Sodium 133 L (137-145) mmol/L Chloride 97 L (98-107) mmol/L BUN 20 H (7-17) mg/dL Glucose 103 H (74-99) mg/dL Albumin 3.3 L (3.5-5.0) g/dL Assessment and Plan Plan: 1. Fall with right hip fracture. Orthopedics to perform surgery possibly tomorrow. [place] one tablet every 4 hours as needed for pain, morphine 4 mg IV every 4 hours needed for pain. Patient is optimized for surgery at this time with a moderate cardiac risk. 2. Right hip fracture. As noted above 3. Coronary artery disease. Metoprolol 12.5 mg daily 4. Hypertension continue Norvasc 10 mg by mouth, continue hydrochlorothiazide 25 mg every 48 hours 5. GERD. Continue Pepcid 20 mg 6. History of [place]. Metoprolol 12.5 mg daily 7. Osteoarthritis. Hold Fentanyl patch increased dose to 25mcg/hr 8. Overactive bladder. Hold myrbetriq 9. GI prophylaxis. Pepcid 10. DVT prophylaxis. 11. COVID-19 infection is pending Discharge plan: Subacute rehab facility Impression and plan of care have been directed as dictated by the signing physician. Minda Weber nurse practitioner acting as scribe for signing physician.
[2019-10-15 11:40] LABS: Appearance,Urine Clear (Clear); Bilirubin,Urine Negative (Negative); Blood,Urine Negative (Negative); Color,Urine Light Yellow; Glucose,Urine (UA) Negative (Negative); Ketones,Urine Negative (Negative); Leukocyte Esterase,Urine Negative (Negative); Nitrite,Urine Negative (Negative); PH, Urine 7.5 (5.0-8.0); Protein,Urine Negative (Negative); Specific Gravity,Urine 1.009 (1.001-1.035); Urobilinogen,Urine <2.0 mg/dL (<2.0)
[2019-10-15] MEDS: HYDROCHLOROTHIAZIDE 25 MG TAB PO SCH (12:24)
[2019-10-15] MEDS: METOPROLOL TARTRATE 12.5 MG TAB PO SCH (12:24)
[2019-10-15] MEDS: HYDROcodone/APAP 5-325MG 1 EACH TAB PO PRN ×2 (12:30→20:17)
--- NOTE | 2019-10-15 12:32 | P.HPOR ---
History of Present Illness H&P Date: 10/15/19 Chief Complaint: Right intertrochanteric femur fracture Patient is an 88-year-old female who presented to [facility] early this morning after falling. Patient is a resident at [facility], she apparently was transferring from her wheelchair when she fell in her room. She was unable to weight-bear after the fall, EMS did bring the patient to the hospital. Upon arrival, imaging and lab tests were done. Images demonstrated a right intertrochanteric femur fracture. I was contacted by the emergency room staff regarding the patient, she was admitted under orthopedic care. Patient was evaluated today at bedside by myself and Dr. Cox. She is resting comfortably. She notes pain in the right lower extremity with movement. She has no some other significant orthopedic complaints this time. She denies any previous surgery involving the right lower extremity. She has a known history of osteoarthritis, she has seen Dr. Marino in the outpatient setting for her right knee which she has received injections. She does take tramadol and also a fentanyl patch for pain control for osteoarthritis. Currently denies any chest pain, shortness of breath, fever or chills, paresthesias in the lower extremity. Review of Systems Constitutional: Reports as per HPI Past Medical History Past Medical History: Coronary Artery Disease (CAD), GERD/Reflux, Hypertension, Myocardial Infarction ([place]), Osteoarthritis ([place]) Additional Past Medical History / Comment(s): "esophagus stricture-appointment next thursday to widen it." Hypertension and hypertensive cardiovascular disease, overactive bladder, osteo-arthritis, esophageal stricture, CAD, [place], hard of hearing. Lumbar vertebra fracture Last Myocardial Infarction Date:: unsure History of Any Multi-Drug Resistant Organisms: None Reported Past Surgical History: Hysterectomy Additional Past Surgical History / Comment(s): Left arm ORIF. Bladder suspension surgery 2, hysterectomy, cataract surgery 2. Past Anesthesia/Blood Transfusion Reactions: No Reported Reaction Past Psychological History: No Psychological Hx Reported Smoking Status: Never smoker Past Alcohol Use History: None Reported Past Drug Use History: None Reported - Past Family History Mother Family Medical History: Coronary Artery Disease (CAD) Father Family Medical History: Cancer Brother(s) Family Medical History: Blood Disorder Sister(s) Family Medical History: Cancer Daughter(s) Family Medical History: No Reported History Son(s) Family Medical History: Coronary Artery Disease (CAD) Medications and Allergies Home Medications Medication Instructions Recorded Confirmed Type Aspirin [[place] Aspirin EC] 81 mg PO DAILY 10/22/18 10/22/18 History Cholecalciferol (Vitamin D3) 5,000 unit PO DAILY 10/22/18 10/22/18 History [Vitamin D3] Dexamethasone 4 mg PO DAILY 10/22/18 10/22/18 History Famotidine 20 mg PO DAILY 10/22/18 10/22/18 History Hydrochlorothiazide 25 mg PO Q48H 10/22/18 10/22/18 History Mirabegron [Myrbetriq] 50 mg PO DAILY 10/22/18 10/22/18 History amLODIPine [Norvasc] 10 mg PO DAILY 10/22/18 10/22/18 History fentaNYL 12MCG/HR PATCH [Duragesic 1 patch TRANSDERM Q72H 10/22/18 10/22/18 History 12MCG/HR] traMADol HCL [Ultram] 25 mg PO TID 10/22/18 10/22/18 History Polyethylene Glycol 3350 [Miralax] 17 gm PO BID powd.pack 10/23/18 Rx Sennosides-Docusate Sodium 1 each PO BID tab 10/23/18 Rx [Senokot-S] Allergies Allergy/AdvReac Type Severity Reaction Status Date / Time No Known Allergies Allergy Verified 10/15/19 12:21 Physical Examination Right lower extremity: No open lesions or sores visualize, no significant areas of soft tissue swelling or erythema Obvious shortening and external rotation of the leg compared to the contralateral side She is unable to straight leg raise, lot reproduces pain Minimal tenderness around the knee with palpation, no tenderness around the foot or ankle Calf is soft, no tenderness with palpation Plantar flexion, dorsiflexion, EHL, FHL are intact Sensory exam to light touch throughout the extremities intact, dorsalis pedis pulses 2+ Results - Labs Labs: Abnormal Lab Results - Last 24 Hours (Table) 10/15/19 10/15/19 Range/Units 08:52 08:52 RBC 3.76 L (3.80-5.40) m/uL MCV 102.4 H (80.0-100.0) fL Lymphocytes # 0.6 L (1.0-4.8) k/uL Sodium 133 L (137-145) mmol/L Chloride 97 L (98-107) mmol/L BUN 20 H (7-17) mg/dL Glucose 103 H (74-99) mg/dL Albumin 3.3 L (3.5-5.0) g/dL H & H 10/15/19 Range/Units 08:52 Hgb 12.1 (11.4-16.0) gm/dL Hct 38.6 (34.0-46.0) % Coagulation 10/15/19 Range/Units 08:52 INR 1.0 (<1.2) Result Diagrams: 10/15/19 08:52 10/15/19 08:52 - Diagnostic results Hip x-ray: report reviewed, image reviewed Hip CT: report reviewed, image reviewed Assessment and Plan Assessment: Displaced and comminuted right intertrochanteric femur fracture Status post fall Other medical comorbidities Plan: X-rays and computed tomography scan were reviewed of the right hip. Images to demonstrate a displaced and comminuted right intertrochanteric femur fracture Our plan is to proceed with a intramedullary nail of the right femur on 10/16/2019 Risk and benefits of the procedure were discussed with the patient today at bedside, she is in good understanding and would like to proceed. I discussed with her that I would recheck after her daughter regarding this treatment plan Obtain consent Pain control GI and DVT prophylaxis, despite subcu medication after surgery Nothing by mouth after midnight Nonweightbearing at this time Physical therapy evaluation after surgery Subacute rehab likely after surgery Further recommendations to follow
[2019-10-15 13:51] VITALS: BMI 19.1
[2019-10-15] MEDS: DEXTROSE 5%-0.45% NACL 1,000 ML IV SCH (18:15)
[2019-10-15] MEDS: POLYETHYLENE GLYCOL 3350 17 GM POWD.PACK PO SCH (21:52)
[2019-10-15] MEDS: SENNOSIDES-DOCUSATE SODIUM 1 EACH TAB PO SCH (21:52)
[2019-10-15] MEDS: MORPHINE SULFATE 4 MG/ML SYRINGE IV PRN (23:51)
[2019-10-16] MEDS: MORPHINE SULFATE 4 MG/ML SYRINGE IV PRN ×2 (04:01→08:11)
[2019-10-16] MEDS: METOPROLOL TARTRATE 12.5 MG TAB PO SCH (08:10)
[2019-10-16] MEDS: amLODIPine 10 MG TAB PO SCH (08:10)
--- NOTE | 2019-10-16 09:16 | P.PN ---
Subjective Progress Note Date: 10/16/19 This is a 88-year-old patient of Dr. Denton's being seen in the emergency room following a fall at [facility]. Patient was getting up from her wheelchair to ambulate to the bathroom when she tripped over the wheelchair landing on her right hip. While patient was lying on the floor she experienced severe right groin and hip pain. Patient was found to have right hip shortened and externally rotated. She will possibly have surgery tomorrow. Patient is also complaining of head discomfort. However she does not remember hitting her head. Patient denies loss of consciousness or syncope prior to the fall. 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 The sentinel patch was recently increased to 25 mcg/hour however she has not started the new patch. 10/16/2019: Patient is scheduled for surgery today. She is resting comfortably in bed without any complaints or concerns expressed. Patient in no acute distress. Patient states that her pain has been managed well. Blood pressure 128/70, heart rate 63, respirations 17, temperature 98.4, 92% on room air. CBC 5.0, hemoglobin 12.1, potassium 3.7, BUN 20, creatinine 0.68 Review of Systems Constitutional: Reports chronic pain, Denies chills, Denies chronic headaches, Denies fatigue, Denies fever Eyes: denies blurred vision, denies pain Ears: bilateral: decreased hearing Ears, nose, mouth and throat: Reports headache, Denies sore throat Cardiovascular: Denies chest pain, Denies shortness of breath Respiratory: Denies cough Gastrointestinal: Denies abdominal pain, Denies diarrhea, Denies nausea, Denies vomiting Genitourinary: Denies dysuria, Denies hematuria Musculoskeletal: Reports fractures, Reports frequent falls, Reports limitation of motion, Reports low back pain Musculoskeletal: right: hip pain Integumentary: Denies pruritus, Denies rash Neurological: Denies numbness, Denies weakness Psychiatric: Denies anxiety, Denies depression Endocrine: Denies fatigue, Denies weight change Hematologic/Lymphatic: Denies easy bleeding, Denies easy bruising Objective - Vital Signs Vital signs: Vital Signs Temp 98.4 F 10/16/19 04:09 Pulse 63 10/16/19 04:09 Resp 17 10/16/19 04:09 BP 128/70 10/16/19 04:09 Pulse Ox 92 L 10/16/19 04:09 Intake & Output 10/15/19 10/16/19 10/16/19 18:59 06:59 18:59 Intake Total 200 Output Total 840 1475 Balance -640 -1475 Weight 43.091 kg Intake: Oral 200 Output: Urine 840 1475 Uretheral (Dawn) 840 Other: Voiding Method Indwelling Catheter Indwelling Catheter Indwelling Catheter - Exam General Appearance: 88-year-old female lying in bed Alert, cooperative, no distress, appears stated age. Neck HEENT: Supple, no lymphadenopathy, no thyroid enlargement, no carotid bruits. Lungs: Clear to auscultation without crackles or wheezes no rhonchi, no deformity. Chest Wall: Chest wall normal expansion with deep inspiration no tenderness and no deformity was found on exam, no costochondral pain or discomfort. Heart: Regular rate and rhythm, S1, S2 normal, no murmur, rub or gallop. Back: Symmetric, kyphosis curvature, ROM normal, no CVA tenderness. Abdomen: Soft, non-tender, no rebound or rigidity, no hepatosplenomegaly. Extremities: Right lower externa shortened with external rotation tenderness to right hip pulses palpable bilaterally all other extremities Extremities normal, atraumatic, no cyanosis or edema. Pulses: 2+ and symmetric. Skin: Skin color, texture, tugor normal, no rashes or lesions. Neurologic: Alert oriented x3 cranial nerves II through XII intact, no motor deficit, - Labs CBC & Chem 7: 10/15/19 08:52 10/15/19 08:52 Labs: Abnormal Lab Results - Last 24 Hours (Table) 10/15/19 Range/Units 08:52 Sodium 133 L (137-145) mmol/L Chloride 97 L (98-107) mmol/L BUN 20 H (7-17) mg/dL Glucose 103 H (74-99) mg/dL Albumin 3.3 L (3.5-5.0) g/dL Assessment and Plan Plan: 1. Fall with right hip fracture. Orthopedics to perform surgery today. [place] one tablet every 4 hours as needed for pain, morphine 4 mg IV every 4 hours needed for pain. Patient is optimized for surgery at this time with a moderate cardiac risk. 2. Right hip fracture. As noted above 3. Coronary artery disease. Metoprolol 12.5 mg daily 4. Hypertension continue Norvasc 10 mg by mouth, continue hydrochlorothiazide 25 mg every 48 hours 5. GERD. Continue Pepcid 20 mg 6. History of [place]. Metoprolol 12.5 mg daily 7. Osteoarthritis. Hold Fentanyl patch increased dose to 25mcg/hr 8. Overactive bladder. Hold myrbetriq 9. GI prophylaxis. Pepcid 10. DVT prophylaxis. 11. COVID-19 infection not detected Discharge plan: Subacute rehab facility Impression and plan of care have been directed as dictated by the signing physician. Minda Weber nurse practitioner acting as scribe for signing physician.
[2019-10-16] MEDS: SENNOSIDES-DOCUSATE SODIUM 1 EACH TAB PO SCH ×2 (09:29→19:39)
[2019-10-16] MEDS: POLYETHYLENE GLYCOL 3350 17 GM POWD.PACK PO SCH ×2 (09:29→19:39)
[2019-10-16] MEDS: FAMOTIDINE 20 MG TAB PO SCH (09:29)
[2019-10-16] MEDS ORDERED: PROPOFOL 10 MG/ML 20 ML VIAL IV ONE (10:20)
[2019-10-16] MEDS ORDERED: ePHEDrine SULFATE/0.9% NACL/PF 50 MG/5 ML SYRINGE IV ONE (10:20)
[2019-10-16] MEDS ORDERED: PHENYLEPHRINE-0.9% NACL SYG 1 MG/10 ML SYRINGE ONE (10:20)
[2019-10-16] MEDS ORDERED: SODIUM CHLORIDE 0.9% 1,000 ML IV ONE (10:22)
[2019-10-16] MEDS ORDERED: ceFAZolin 1,000 MG in SODIUM CHLORIDE 0.9% 1,000 ML IRRIGATION ONE (11:01)
[2019-10-16] MEDS ORDERED: LACTATED RINGERS 1,000 ML IV ONE (11:23)
--- NOTE | 2019-10-16 11:40 | XR ---
FLUOROSCOPY 65 seconds of fluoroscopy time were utilized during internal fixation of the right hip. 4 images docu ment the procedure.
--- NOTE | 2019-10-16 11:41 | P.OP ---
Date of Procedure: 10/16/19 Preoperative Diagnosis: Right intertrochanteric femur fracture Postoperative Diagnosis: Same Procedure(s) Performed: Trochanteric intramedullary nailing right intertrochanteric femur fracture Implants: Suni short gamma nail11 mm, 130, 95 mm compression screw Anesthesia: spinal Surgeon: John Cox Clinical Rehabilitation Coordinator #1: Grey Best Estimated Blood Loss (ml): 50 Pathology: none sent Condition: stable Disposition: PACU Indications for Procedure: The patient's an 88-year-old female who presents after falling injuring her right hip. Upon evaluation she is noted have a mildly displaced right intertrochanteric femur fracture. A discussion of the risks and benefits of operative intervention was made with patient and her family. Specific risks of surgery to include infection, neurovascular injury, development of blood clots, possible development of nonunion/malunion, and possible need for subsequent procedures was discussed. Informed consent was obtained. Operative Findings: As below Description of Procedure: The patient was brought to the operating room, and after induction of spinal anesthesia was placed supine on the Gabriella table. The fracture was reduced with longitudinal traction and internal rotation of the right lower extremity. This was verified on the AP and lateral views of fluoroscopy. Bony processes were appropriately padded. The right lower extremity was prepped and draped in normal fashion. A 6 cm incision was then made proximal to greater trochanter. Skin and subcu tissues were divided sharply. Electrocautery was used for hemostasis. The gluteus gonzález fascia was split in line with the skin incision. Blunt dissection was then made down to level the tip of the greater trochanter. A starting awl was then inserted in the tip the greater trochanter with the aid of fluoroscopy. A ball-tipped guidewire was inserted. Distally I reamed to 12.5 mm. Proximally this was reamed up to 15.5 mm. A short 11 mm gamma nail was then gently inserted. The guidewire was then removed. With the aid of fluoroscopy, the compression screw was placed in the centercenter portion of the femoral head and neck on the AP and lateral views to within 5 mm of the articular surface. There was good purchase. The distal static locking screw was inserted with the guide. The proximal locking screw was placed. Final fluoroscopic view showed adequate reduction of the fracture and placement of the implant. Wounds were irrigated with normal saline. The fascia was closed with interrupted 1 Vicryl suture. The subcutaneous tissues were reap proximated interrupted 2-0 Vicryl sutures. The skin was reapproximated with codi. A sterile dressing was applied. The patient was awoken from sedation and transferred to recovery room in fair condition. Blood loss was estimated 50 mL. No complications were incurred. Sponge and needle counts were correct at the end the case.
[2019-10-16] MEDS: HYDROcodone/APAP 5-325MG 1 EACH TAB PO PRN (13:55)
[2019-10-16] MEDS: DEXTROSE 5%-0.45% NACL 1,000 ML IV SCH (17:26)
[2019-10-16] MEDS: HEPARIN SODIUM,PORCINE 5,000 UNIT/ML 1 ML VIAL SQ SCH (19:39)
[2019-10-17 07:18] LABS: Basophils % (A) 0 %; Eosinophils % (A) 1 %; HCT 32.3 % (34.0-46.0); HGB 10.6 gm/dL (11.4-16.0); Lymphocytes # (A) 0.5 k/uL (1.0-4.8); Lymphocytes % (A) 8 %; MCH 32.8 pg (25.0-35.0); MCHC 32.8 g/dL (31.0-37.0); MCV 100.1 fL (80.0-100.0); Monocytes # (A) 0.3 k/uL (0-1.0); Monocytes % (A) 5 %; Neutrophils % (A) 86 %; Platelet Count 297 k/uL (150-450); RBC 3.23 m/uL (3.80-5.40); RDW 12.5 % (11.5-15.5)
[2019-10-17 07:28] LABS: African American GFR (CKD) >90 (>60 ml/min/1.73 sqM); Anion Gap 7 mmol/L; Blood Urea Nitrogen 14 mg/dL (7-17); Calcium 8.4 mg/dL (8.4-10.2); Carbon Dioxide 28 mmol/L (22-30); Chloride 97 mmol/L (98-107); Glucose 125 mg/dL (74-99); Non-African American GFR(CKD) 88 (>60 ml/min/1.73 sqM); Sodium 132 mmol/L (137-145)
[2019-10-17] MEDS: METOPROLOL TARTRATE 12.5 MG TAB PO SCH (08:14)
[2019-10-17] MEDS: amLODIPine 10 MG TAB PO SCH (08:14)
[2019-10-17] MEDS: FAMOTIDINE 20 MG TAB PO SCH (08:14)
[2019-10-17] MEDS: SENNOSIDES-DOCUSATE SODIUM 1 EACH TAB PO SCH ×2 (08:14→21:50)
[2019-10-17] MEDS: HYDROCHLOROTHIAZIDE 25 MG TAB PO SCH (08:15)
[2019-10-17] MEDS: POLYETHYLENE GLYCOL 3350 17 GM POWD.PACK PO SCH ×2 (08:15→21:50)
[2019-10-17] MEDS: HEPARIN SODIUM,PORCINE 5,000 UNIT/ML 1 ML VIAL SQ SCH ×2 (08:15→21:49)
[2019-10-17] MEDS: HYDROcodone/APAP 5-325MG 1 EACH TAB PO PRN ×2 (08:24→16:49)
[2019-10-17] MEDS: DEXTROSE 5%-0.45% NACL 1,000 ML IV SCH ×2 (10:16→14:41)
--- NOTE | 2019-10-17 10:45 | P.PN ---
Subjective Progress Note Date: 10/17/19 This is a 88-year-old patient of Dr. Denton's being seen in the emergency room following a fall at [facility]. Patient was getting up from her wheelchair to ambulate to the bathroom when she tripped over the wheelchair landing on her right hip. While patient was lying on the floor she experienced severe right groin and hip pain. Patient was found to have right hip shortened and externally rotated. She will possibly have surgery tomorrow. Patient is also complaining of head discomfort. However she does not remember hitting her head. Patient denies loss of consciousness or syncope prior to the fall. 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 The sentinel patch was recently increased to 25 mcg/hour however she has not started the new patch. 10/16/2019: Patient is scheduled for surgery today. She is resting comfortably in bed without any complaints or concerns expressed. Patient in no acute distress. Patient states that her pain has been managed well. Blood pressure 128/70, heart rate 63, respirations 17, temperature 98.4, 92% on room air. CBC 5.0, hemoglobin 12.1, potassium 3.7, BUN 20, creatinine 0.68 10/16: Patient is seen today sitting up in recliner. She denies having any new complaints. She's been afebrile, heart rate 95, blood pressure 134/75, pulse ox 98% on 2 L nasal cannula. Repeat hemoglobin 10.6, potassium 3.0 and will be replaced. Coronavirus testing is not detected. Patient is planning for [facility] for subacute rehab and then returning to [facility] once rehabilitation is completed. Review of Systems Constitutional: Reports chronic pain, Denies chills, Denies chronic headaches, Denies fatigue, Denies fever Eyes: denies blurred vision, denies pain Ears: bilateral: decreased hearing Ears, nose, mouth and throat: Reports headache, Denies sore throat Cardiovascular: Denies chest pain, Denies shortness of breath Respiratory: Denies cough Gastrointestinal: Denies abdominal pain, Denies diarrhea, Denies nausea, Denies vomiting Genitourinary: Denies dysuria, Denies hematuria Musculoskeletal: Reports fractures, Reports frequent falls, Reports limitation of motion, Reports low back pain Musculoskeletal: right: hip pain--improved Integumentary: Denies pruritus, Denies rash Neurological: Denies numbness, Denies weakness Psychiatric: Denies anxiety, Denies depression Endocrine: Denies fatigue, Denies weight change Hematologic/Lymphatic: Denies easy bleeding, Denies easy bruising Objective - Vital Signs Vital signs: Vital Signs Temp 96.7 F L 10/16/19 21:33 Pulse 95 10/16/19 21:33 Resp 20 10/16/19 21:33 BP 134/75 10/16/19 21:33 Pulse Ox 98 10/16/19 21:33 Intake & Output 10/16/19 10/17/19 10/17/19 18:59 06:59 18:59 Intake Total 951 100 Output Total 810 300 Balance 141 -200 Intake: IV 951 Dextrose 5%-0.45% NaCl 1, 400 000 ml @ 50 mls/hr IV . Q20H DARRYL Rx#:[id number] Oral 100 Output: Urine 760 300 Uretheral (Dawn) 460 Estimated Blood Loss 50 Other: Voiding Method Indwelling Catheter Indwelling Catheter # Bowel Movements 4 - Exam General Appearance: 88-year-old female sitting in recliner appears to be in no acute distress. Neck HEENT: Supple, no lymphadenopathy, no thyroid enlargement, no carotid bruits. Lungs: Clear to auscultation without crackles or wheezes no rhonchi, no deformity. Chest Wall: Chest wall normal expansion with deep inspiration no tenderness and no deformity was found on exam, no costochondral pain or discomfort. Heart: Regular rate and rhythm, S1, S2 normal, no murmur, rub or gallop. Back: Symmetric, kyphosis curvature, ROM normal, no CVA tenderness. Abdomen: Soft, non-tender, no rebound or rigidity, no hepatosplenomegaly. Extremities: Small dressing in place to the right hip pulses palpable bilaterally, Extremities normal, atraumatic, no cyanosis or edema. Pulses: 2+ and symmetric. Skin: Skin color, texture, tugor normal, no rashes or lesions. Neurologic: Alert oriented x3 cranial nerves II through XII intact, no motor deficit, - Labs CBC & Chem 7: 10/17/19 06:44 10/17/19 06:44 Labs: Abnormal Lab Results - Last 24 Hours (Table) 10/17/19 10/17/19 Range/Units 06:44 06:44 RBC 3.23 L (3.80-5.40) m/uL Hgb 10.6 L (11.4-16.0) gm/dL Hct 32.3 L (34.0-46.0) % MCV 100.1 H (80.0-100.0) fL Lymphocytes # 0.5 L (1.0-4.8) k/uL Sodium 132 L (137-145) mmol/L Potassium 3.0 L (3.5-5.1) mmol/L Chloride 97 L (98-107) mmol/L Creatinine 0.49 L (0.52-1.04) mg/dL Glucose 125 H (74-99) mg/dL Assessment and Plan Plan: 1. Fall with right hip fracture status post IM nailing on 10/15. Continue [place] one tablet every 4 hours as needed for pain, morphine 4 mg IV every 4 hours needed for pain. 2. Right hip fracture. As noted above 3. Coronary artery disease. Metoprolol 12.5 mg daily 4. Hypertension continue Norvasc 10 mg by mouth, continue hydrochlorothiazide 25 mg every 48 hours 5. GERD. Continue Pepcid 20 mg 6. History of [place]. Metoprolol 12.5 mg daily 7. Osteoarthritis. Hold Fentanyl patch increased dose to 25mcg/hr 8. Overactive bladder. Hold myrbetriq 9. GI prophylaxis. Pepcid 10. DVT prophylaxis. 11. COVID-19 infection not detected Discharge plan: [place] on Thursday Impression and plan of care have been directed as dictated by the signing physician. Michell Altamirano nurse practitioner acting as scribe for signing physician.
[2019-10-17] MEDS: POTASSIUM CHLORIDE ER 20 MEQ TAB.ER PO SCH ×2 (11:41→13:21)
[2019-10-17] MEDS ORDERED: IBUPROFEN 200 MG TAB PO PRN (12:27)
--- NOTE | 2019-10-17 12:30 | P.PN ---
Subjective Progress Note Date: 10/17/19 Principal diagnosis: Status post intramedullary nail right intertrochanteric femur fracture Patient is examined today at bedside, she is resting in her hospital chair. Her pain is controlled at this time, she does have some discomfort in the lower legs. She is requesting ibuprofen for that. She has no chest pain or shortness of breath at this time. Objective - Vital Signs Vital signs: Vital Signs Temp 96.7 F L 10/16/19 21:33 Pulse 95 10/16/19 21:33 Resp 20 10/16/19 21:33 BP 134/75 10/16/19 21:33 Pulse Ox 98 10/16/19 21:33 Intake & Output 10/16/19 10/17/19 10/17/19 18:59 06:59 18:59 Intake Total 951 100 Output Total 810 300 Balance 141 -200 Intake: IV 951 Dextrose 5%-0.45% NaCl 1, 400 000 ml @ 50 mls/hr IV . Q20H DARRYL Rx#:[id number] Oral 100 Output: Urine 760 300 Uretheral (Dawn) 460 Estimated Blood Loss 50 Other: Voiding Method Indwelling Catheter Indwelling Catheter Indwelling Catheter # Bowel Movements 4 - Exam Right lower extremity: Postop bandages in good position and condition, no active drainage. Minimal soft tissue swelling present in the leg. Calf is soft, no tenderness with palpation. Her sensory exam light touch is intact throughout the extremity. Dorsalis pedis pulses 2+. - Labs CBC & Chem 7: 10/17/19 06:44 10/17/19 06:44 Labs: Abnormal Lab Results - Last 24 Hours (Table) 10/17/19 10/17/19 Range/Units 06:44 06:44 RBC 3.23 L (3.80-5.40) m/uL Hgb 10.6 L (11.4-16.0) gm/dL Hct 32.3 L (34.0-46.0) % MCV 100.1 H (80.0-100.0) fL Lymphocytes # 0.5 L (1.0-4.8) k/uL Sodium 132 L (137-145) mmol/L Potassium 3.0 L (3.5-5.1) mmol/L Chloride 97 L (98-107) mmol/L Creatinine 0.49 L (0.52-1.04) mg/dL Glucose 125 H (74-99) mg/dL Assessment and Plan Assessment: Status post IM nail right intertrochanteric femur fracture Plan: Pain control, we'll reorder Motrin, oral [place] as needed also GI and DVT prophylaxis, continue subcu medication Daily dressing changes Weight-bear as tolerated with walker, physical therapy evaluation Medical recommendations Encourage incentive spirometer Plan for discharge to subacute rehab tomorrow Time with Patient: Less than 30
[2019-10-18] MEDS: DEXTROSE 5%-0.45% NACL 1,000 ML IV SCH ×2 (07:17→09:30)
[2019-10-18] MEDS: HYDROcodone/APAP 5-325MG 1 EACH TAB PO PRN (08:28)
[2019-10-18] MEDS ORDERED: ALPRAZolam 0.25 MG TAB PO PRN (09:18)
--- NOTE | 2019-10-18 09:22 | P.PN ---
Subjective Progress Note Date: 10/18/19 Principal diagnosis: Status post intramedullary nail right intertrochanteric femur fracture Patient evaluated bedside, she is resting in her hospital chair. She has minimal discomfort involving the right lower extremity. She has no chest pain or shortness of breath at this time. Objective - Vital Signs Vital signs: Vital Signs Temp 98.4 F 10/18/19 05:03 Pulse 73 10/18/19 05:03 Resp 18 10/18/19 05:03 BP 158/73 10/18/19 05:03 Pulse Ox 93 L 10/18/19 05:03 Intake & Output 10/17/19 10/18/19 10/18/19 18:59 06:59 18:59 Intake Total 400 600 Output Total 400 400 Balance 0 200 Intake: IV 400 600 Dextrose 5%-0.45% NaCl 1, 400 600 000 ml @ 50 mls/hr IV . Q20H DARRYL Rx#:[id number] Output: Urine 400 400 Uretheral (Dawn) 400 400 Other: Voiding Method Indwelling Catheter Indwelling Catheter Indwelling Catheter # Voids 3 # Bowel Movements 3 - Exam Right lower extremity: Incision is clean, dry and intact, codi are in good position. Minimal soft tissue swelling present in the leg. Calf is soft, no tenderness with palpation. Her sensory exam light touch is intact throughout the extremity. Dorsalis pedis pulses 2+. - Labs CBC & Chem 7: 10/17/19 06:44 10/17/19 06:44 Assessment and Plan Assessment: Status post IM nail right intertrochanteric femur fracture Plan: Pain control, dc on [place] 5 mg/325 mg, tramadol 50mg, and we'll restart her fentanyl patch GI and DVT prophylaxis, Aspirin 81 mg twice a day Daily dressing changes Weight-bear as tolerated with walker, physical therapy evaluation Medical recommendations Encourage incentive spirometer Plan for discharge to subacute rehab today Time with Patient: Less than 30
[2019-10-18] MEDS: amLODIPine 10 MG TAB PO SCH (09:31)
[2019-10-18] MEDS: METOPROLOL TARTRATE 12.5 MG TAB PO SCH (09:31)
[2019-10-18] MEDS: HEPARIN SODIUM,PORCINE 5,000 UNIT/ML 1 ML VIAL SQ SCH (09:31)
[2019-10-18] MEDS: FAMOTIDINE 20 MG TAB PO SCH (09:31)
[2019-10-18] MEDS: POLYETHYLENE GLYCOL 3350 17 GM POWD.PACK PO SCH (09:31)
[2019-10-18] MEDS: SENNOSIDES-DOCUSATE SODIUM 1 EACH TAB PO SCH (09:31)
--- NOTE | 2019-10-18 09:36 | P.DS ---
Providers Date of admission: 10/15/19 08:43 Expected date of discharge: 10/18/19 Attending physician: John Cox Consults: 10/15/19 08:34 Consult Physician Urgent Consulting Provider: Nando Velazquez Reason/Comments: Surgical clearance Do you want consulting provider notified?: Yes Primary care physician: Nando Velazquez [facility] Course: Date of admission: 10/15/2019 Date of discharge: 10/18/2019 Admission diagnosis: Right intertrochanteric femur fracture Discharge diagnosis: Status post intramedullary nailing right intertrochanteric femur fracture Attending physician: Dr. Cox Surgical procedures: Intramedullary nailing right intertrochanteric femur fracture Brief history: Patient is a 88-year-old female who presented to [facility] on 10/15/2019 after falling at her home. She fell directly onto that right side, after the fall she was unable to weight-bear. Upon arrival to the hospital, imaging and lab test were done. It was determined she had a right intertrochanteric femur fracture. I was contacted by the emergency room staff and discussed the case, I then discussed with my attending physician Dr. Cox. She was admitted under our orthopedic care with plan for likely surgical intervention. Hospital course: Details of patient's surgery can be found in operative report. Patient tolerated the procedure well and was subsequently transported to orthopedic floor. Patient's orthopeidc and medical care was provided daily. Patient had daily laboratory tests performed for evaluation of overall blood counts. Patient had daily physical therapy to include strengthening range of motion as well as education with walker ambulation. Patient was treated with Heparin for their postoperative DVT prophylaxis during their inpatient stay. Patient was noted to have a relatively uneventful postoperative course. Patient reported satisfactory pain control with oral pain medications by postoperative day 0. Patient showed satisfactory progress with physical therapy. Patient moved steadily through the program and had no difficulty meeting the goals by postoperative day 2. Given patient's otherwise satisfactory course and having met physical therapy goals, plan is to discharge patient Rehab on postoperative day 2. Discharge condition/disposition: Patient will be discharged Rehab in stable condition. Discharge medications: Instructions are given on resumption of patient's normal daily medications per primary care recommendation, in addition patient will be prescribed [place] 5 mg/325 mg, tramadol 50 mg, Senokot-S. Discharge instructions: 1. Wound care and infection precautions, keep incision dry and covered while showering, no lotions, creams, moisturizers. No soaking, tubs, pools, hottubs. Do not scrub over the incision. 2. Weight-bear as tolerated with walker / cane until follow-up. 3. Ice and elevate when necessary. Do not exceed 20 minutes per hour with ice pack. 4. Utilize compression sleeve until seen at first follow up appointment. 5. Visiting nursing care. 6. Home physical therapy 7. Pain meds and anticoagulants per prescription. 8. Pain medication has potential to cause constipation. Increase oral fluid and fiber intake. Contact primary care provider if you have not had a bowel movement within 48 hours after discharge 9. No anti-inflammatory medication until discussed at first post operative visit, this including Motrin, Aleve, Mobic, Diclofenac 10. Follow up in office at 2 weeks postop with Damien Best PA-C 11. Follow up with your primary care doctor 7-10 days after discharge. 12. Contact [facility] with any questions, . Procedures: Intramedullary nailing right intertrochanteric femur fracture Patient Condition at Discharge: Fair Plan - Discharge Summary Discharge Rx Participant: No New Discharge Prescriptions: New Sennosides-Docusate Sodium [Senokot-S] 1 each PO BID tab Aspirin [Adult Low Dose Aspirin EC] 81 mg PO BID #60 tablet. Hydrocodone/Acetaminophen [[place] 5-325] 1 each PO Q6HR PRN #28 tab PRN Reason: Pain traMADol HCl [Ultram] 25 mg PO Q8HR PRN #28 tab PRN Reason: Pain Continue traMADol HCL [Ultram] 25 mg PO TID amLODIPine [Norvasc] 10 mg PO DAILY Hydrochlorothiazide 25 mg PO MOWEFR Cholecalciferol (Vitamin D3) [Vitamin D3] 5,000 unit PO DAILY Atenolol 25 mg PO DAILY Baclofen 5 mg PO BID PRN PRN Reason: BACK PAIN Baclofen 5 mg PO HS Calcium Carbonate [Tums] 1,000 mg PO Q8H PRN PRN Reason: STOMACH ACHE Docusate [Colace] 100 mg PO BID DULoxetine HCL [Cymbalta] 30 mg PO QAM Ibuprofen 200 mg PO Q4-6H PRN PRN Reason: Pain Magnesium Hydroxide [Milk of Magnesia] 2,400 mg PO DAILY PRN PRN Reason: Constipation Melatonin 3 mg PO HS Pantoprazole [Protonix] 40 mg PO DAILY Polyethylene Glycol 3350 [Miralax] 17 gm PO Q48H Propylene Glycol/Peg 400/Pf [Systane 0.3-0.4% Eye Drop] 1 drop BOTH EYES BID Simethicone [Gas-X] 125 mg PO DAILY PRN PRN Reason: GAS ALPRAZolam [Xanax] 0.25 mg PO HS #3 tab ALPRAZolam [Xanax] 0.25 mg PO DAILY PRN #3 tab PRN Reason: Anxiety Changed fentaNYL 25MCG/HR PATCH [Duragesic 25MCG/HR] 1 patch TRANSDERM Q72H #1 patch Discontinued fentaNYL 50MCG/HR PATCH [Duragesic 50MCG/HR] 1 patch TRANSDERM Q72H PRN PRN Reason: START 10/16/19 Discharge Medication List Cholecalciferol (Vitamin D3) [Vitamin D3] 5,000 unit PO DAILY 10/22/18 [History] Hydrochlorothiazide 25 mg PO MOWEFR 10/22/18 [History] amLODIPine [Norvasc] 10 mg PO DAILY 10/22/18 [History] traMADol HCL [Ultram] 25 mg PO TID 10/22/18 [History] Atenolol 25 mg PO DAILY 10/15/19 [History] Baclofen 5 mg PO BID PRN 10/15/19 [History] Baclofen 5 mg PO HS 10/15/19 [History] Calcium Carbonate [Tums] 1,000 mg PO Q8H PRN 10/15/19 [History] DULoxetine HCL [Cymbalta] 30 mg PO QAM 10/15/19 [History] Docusate [Colace] 100 mg PO BID 10/15/19 [History] Ibuprofen 200 mg PO Q4-6H PRN 10/15/19 [History] Magnesium Hydroxide [Milk of Magnesia] 2,400 mg PO DAILY PRN 10/15/19 [History] Melatonin 3 mg PO HS 10/15/19 [History] Pantoprazole [Protonix] 40 mg PO DAILY 10/15/19 [History] Polyethylene Glycol 3350 [Miralax] 17 gm PO Q48H 10/15/19 [History] Propylene Glycol/Peg 400/Pf [Systane 0.3-0.4% Eye Drop] 1 drop BOTH EYES BID 10/15/19 [History] Simethicone [Gas-X] 125 mg PO DAILY PRN 10/15/19 [History] ALPRAZolam [Xanax] 0.25 mg PO DAILY PRN #3 tab 10/18/19 [Rx] ALPRAZolam [Xanax] 0.25 mg PO HS #3 tab 10/18/19 [Rx] Aspirin [Adult Low Dose Aspirin EC] 81 mg PO BID #60 tablet.dr 10/18/19 [Rx] Hydrocodone/Acetaminophen [[place] 5-325] 1 each PO Q6HR PRN #28 tab 10/18/19 [Rx] Sennosides-Docusate Sodium [Senokot-S] 1 each PO BID tab 10/18/19 [Rx] fentaNYL 25MCG/HR PATCH [Duragesic 25MCG/HR] 1 patch TRANSDERM Q72H #1 patch 10/18/19 [Rx] traMADol HCl [Ultram] 25 mg PO Q8HR PRN #28 tab 10/18/19 [Rx] Follow up Appointment(s)/Referral(s): Nando Velazquez MD [Primary Care Provider] - 1 Week (at [facility]) Grey Best PAC [PHYSICIAN LINER REROLL TENDER] - 2 Weeks Activity/Diet/Wound Care/Special Instructions: Orthopedic Discharge Instructions: 1. Wound care and infection precautions, [keep incision dry and covered while showering], no lotions, creams, moisturizers. No soaking, pools, hot tubs. Do not scrub over incision. 2. Weight-bear as tolerated with walker / cane until follow-up. 3. Ice and elevate when necessary. Do not exceed 20 minutes per hour with ice pack. 4. Utilize compression sleeve until seen at first follow up appointment. 5. Pain meds and anticoagulants per prescription. 6. Pain medication has potential to cause constipation. Increase oral fluid and fiber intake. Contact primary care provider if you have not had a bowel movement within 48 hours after discharge. 7. No anti-inflammatory medication until discussed at first post operative visit, this including Motrin, Aleve, Mobic, Diclofenac 8. Follow up in office at 2 weeks postop with Damien Best PA-C 9. Follow up with your primary care doctor 7-10 days after discharge. 10. Contact [facility] with any questions, . Discharge Disposition: TRANSFER TO SNF/ECF
[2019-10-18 12:06] VITALS: BP 137/67; PULSE 86; RESP 17; TEMP 98.7
--- NOTE | 2019-10-18 13:33 | P.PN ---
Subjective Progress Note Date: 10/18/19 This is a 88-year-old patient of Dr. Denton's being seen in the emergency room following a fall at [facility]. Patient was getting up from her wheelchair to ambulate to the bathroom when she tripped over the wheelchair landing on her right hip. While patient was lying on the floor she experienced severe right groin and hip pain. Patient was found to have right hip shortened and externally rotated. She will possibly have surgery tomorrow. Patient is also complaining of head discomfort. However she does not remember hitting her head. Patient denies loss of consciousness or syncope prior to the fall. 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 The sentinel patch was recently increased to 25 mcg/hour however she has not started the new patch. 10/16/2019: Patient is scheduled for surgery today. She is resting comfortably in bed without any complaints or concerns expressed. Patient in no acute distress. Patient states that her pain has been managed well. Blood pressure 128/70, heart rate 63, respirations 17, temperature 98.4, 92% on room air. CBC 5.0, hemoglobin 12.1, potassium 3.7, BUN 20, creatinine 0.68 10/16: Patient is seen today sitting up in recliner. She denies having any new complaints. She's been afebrile, heart rate 95, blood pressure 134/75, pulse ox 98% on 2 L nasal cannula. Repeat hemoglobin 10.6, potassium 3.0 and will be replaced. Coronavirus testing is not detected. Patient is planning for [facility] for subacute rehab and then returning to [facility] once rehabilitation is completed. 10/17: Patient states that she is very emotional today. Her Xanax will be resumed. Otherwise, patient denies any new complaints. No chest pain or shortness of breath. Pain is currently controlled. She has been afebrile, heart rate 86, blood pressure 137/67 and pulse ox 98% on room air. Patient is scheduled for discharge to [facility] which will be under the care of Dr. Velazquez for subacute rehab until she is able to return back to [facility]. Medication reconciliation has been completed. Case was discussed with orthopedics. Review of Systems Constitutional: Reports chronic pain, Denies chills, Denies chronic headaches, Denies fatigue, Denies fever Eyes: denies blurred vision, denies pain Ears: bilateral: decreased hearing Ears, nose, mouth and throat: Reports headache, Denies sore throat Cardiovascular: Denies chest pain, Denies shortness of breath Respiratory: Denies cough Gastrointestinal: Denies abdominal pain, Denies diarrhea, Denies nausea, Denies vomiting Genitourinary: Denies dysuria, Denies hematuria Musculoskeletal: Reports fractures, Reports frequent falls, Reports limitation of motion, Reports low back pain Musculoskeletal: right: hip pain--improved Integumentary: Denies pruritus, Denies rash Neurological: Denies numbness, Denies weakness Psychiatric: Denies anxiety, reports depression Endocrine: Denies fatigue, Denies weight change Hematologic/Lymphatic: Denies easy bleeding, Denies easy bruising Objective - Vital Signs Vital signs: Vital Signs Temp 98.4 F 10/18/19 05:03 Pulse 73 10/18/19 05:03 Resp 18 10/18/19 05:03 BP 158/73 10/18/19 05:03 Pulse Ox 93 L 10/18/19 05:03 Intake & Output 10/17/19 10/18/19 10/18/19 18:59 06:59 18:59 Intake Total 400 600 Output Total 400 400 Balance 0 200 Intake: IV 400 600 Dextrose 5%-0.45% NaCl 1, 400 600 000 ml @ 50 mls/hr IV . Q20H DARRYL Rx#:[id number] Output: Urine 400 400 Uretheral (Dawn) 400 400 Other: Voiding Method Indwelling Catheter Indwelling Catheter Indwelling Catheter # Voids 3 # Bowel Movements 3 - Exam General Appearance: 88-year-old female sitting in recliner. Neck HEENT: Supple, no lymphadenopathy, no thyroid enlargement, no carotid bruits. Lungs: Clear to auscultation without crackles or wheezes no rhonchi, no de formity. Chest Wall: Chest wall normal expansion with deep inspiration no tenderness and no deformity was found on exam, no costochondral pain or discomfort. Heart: Regular rate and rhythm, S1, S2 normal, no murmur, rub or gallop. Back: Symmetric, kyphosis curvature, ROM normal, no CVA tenderness. Abdomen: Soft, non-tender, no rebound or rigidity, no hepatosplenomegaly. Extremities: Small dressing in place to the right hip pulses palpable bilaterally, Extremities normal, atraumatic, no cyanosis or edema. Pulses: 2+ and symmetric. Skin: Skin color, texture, tugor normal, no rashes or lesions. Neurologic: Alert oriented x3 cranial nerves II through XII intact, no motor deficit, - Labs CBC & Chem 7: 10/17/19 06:44 10/17/19 06:44 Assessment and Plan Plan: 1. Fall with right hip fracture status post IM nailing on 10/15. Continue [place] one tablet every 4 hours as needed for pain, morphine 4 mg IV every 4 hours needed for pain. 2. Right hip fracture. As noted above 3. Coronary artery disease. Metoprolol 12.5 mg daily 4. Hypertension continue Norvasc 10 mg by mouth, continue hydrochlorothiazide 25 mg every 48 hours 5. GERD. Continue Pepcid 20 mg 6. History of [place]. Metoprolol 12.5 mg daily 7. Osteoarthritis. Hold Fentanyl patch increased dose to 25mcg/hr 8. Overactive bladder. Hold myrbetriq 9. GI prophylaxis. Pepcid 10. DVT prophylaxis. 11. COVID-19 infection not detected 12. Generalized anxiety disorder. Resume Xanax. Discharge plan: [facility] on Thursday under the care of Dr. Velazquez Impression and plan of care have been directed as dictated by the signing physician. Michell Altamirano nurse practitioner acting as scribe for signing physician.
[2019-10-18] MEDS ORDERED: ALPRAZolam 0.25 MG TAB PO SCH (21:00)
== END 2019-10-18 13:45 | DRG 482 ==
LOC: EC 07:33 → 4SSUR 08:43 → 5NMEDONC 10-16 18:51
PROVIDERS: ADMIT Orthopaedic Surgery; ATTEND Orthopaedic Surgery
PROC: 0QS606Z Reposition Right Upper Femur with Intramedullary Internal Fixation Device, Open Approach (ICD-10-PCS; principal; 2019-10-16 10:00)
DX: S72.141A Displaced intertrochanteric fracture of right femur, initial encounter for closed fracture (principal); I11.9 Hypertensive heart disease without heart failure; K22.2 Esophageal obstruction; I25.10 Atherosclerotic heart disease of native coronary artery without angina pectoris; I25.2 Old myocardial infarction; M19.90 Unspecified osteoarthritis, unspecified site; N32.81 Overactive bladder; F41.1 Generalized anxiety disorder; K21.9 Gastro-esophageal reflux disease without esophagitis; R51 Headache; H91.90 Unspecified hearing loss, unspecified ear; Z11.59 Encounter for screening for other viral diseases; W18.09XA Striking against other object with subsequent fall, initial encounter; Y92.039 Unspecified place in apartment as the place of occurrence of the external cause; Z79.82 Long term (current) use of aspirin; Z79.891 Long term (current) use of opiate analgesic; Z79.52 Long term (current) use of systemic steroids; Z79.899 Other long term (current) drug therapy; Z90.710 Acquired absence of both cervix and uterus; Z87.81 Personal history of (healed) traumatic fracture; Z98.42 Cataract extraction status, left eye; Z98.41 Cataract extraction status, right eye; Z98.890 Other specified postprocedural states; Z82.49 Family history of ischemic heart disease and other diseases of the circulatory system; Z80.0 Family history of malignant neoplasm of digestive organs; Z82.0 Family history of epilepsy and other diseases of the nervous system; Z80.42 Family history of malignant neoplasm of prostate; Z83.2 Family history of diseases of the blood and blood-forming organs and certain disorders involving the immune mechanism; Z82.5 Family history of asthma and other chronic lower respiratory diseases
CPT/HCPCS: 36415; 70450; 71045; 72125; 73501; 73502; 80048; 80053; 81003; 85025; 85610; 85730; 87635; 93005; 99285

== ENCOUNTER 2020-12-17 20:04 | Inpatient (IN) | payer MEDICARE, OTHER ==
[2020-12-17] MEDS ORDERED: KETOROLAC 15 MG/ML 1 ML VIAL IVP STA (20:31)
[2020-12-17] MEDS ORDERED: NALOXONE 0.4 MG/ML 1 ML VIAL IV PRN (20:46)
[2020-12-17] MEDS ORDERED: SODIUM CHLORIDE 0.9% 1,000 ML IV ONE (20:46)
[2020-12-17] MEDS ORDERED: MORPHINE SULFATE 2 MG/ML SYRINGE IV PRN (20:46)
[2020-12-17] MEDS ORDERED: ACETAMINOPHEN TAB 325 MG TAB PO PRN (20:46)
[2020-12-17 21:01] LABS: Basophils % (A) 1 %; Eosinophils # (A) 0.2 k/uL (0-0.7); Eosinophils % (A) 6 %; HCT 38.2 % (34.0-46.0); HGB 11.9 gm/dL (11.4-16.0); Lymphocytes # (A) 1.3 k/uL (1.0-4.8); Lymphocytes % (A) 30 %; MCH 30.5 pg (25.0-35.0); MCV 98.3 fL (80.0-100.0); Mean Platelet Volume 6.6; Monocytes # (A) 0.3 k/uL (0-1.0); Monocytes % (A) 7 %; Neutrophils # (A) 2.2 k/uL (1.3-7.7); Neutrophils % (A) 53 %; Platelet Count 403 k/uL (150-450); RBC 3.89 m/uL (3.80-5.40); RDW 14.8 % (11.5-15.5); WBC 4.2 k/uL (3.8-10.6)
[2020-12-17 21:10] LABS: ALT 14 U/L (4-34); AST 36 U/L (14-36); African American GFR (CKD) >90 (>60 ml/min/1.73 sqM); Albumin 3.6 g/dL (3.5-5.0); Alkaline Phosphatase 199 U/L (38-126); Anion Gap 7 mmol/L; Blood Urea Nitrogen 30 mg/dL (7-17); Calcium 9.5 mg/dL (8.4-10.2); Carbon Dioxide 29 mmol/L (22-30); Chloride 102 mmol/L (98-107); Glucose 109 mg/dL (74-99); Non-African American GFR(CKD) 79 (>60 ml/min/1.73 sqM); Potassium 4.3 mmol/L (3.5-5.1); Sodium 138 mmol/L (137-145); Total Bilirubin 0.1 mg/dL (0.2-1.3); Total Protein 7.6 g/dL (6.3-8.2)
[2020-12-17 21:15] LABS: Partial Thromboplastin Time 23.5 sec (22.0-30.0); Prothrombin Time 10.4 sec (9.0-12.0)
[2020-12-17] MEDS: LIDOCAINE 5% PATCH TOPICAL SCH (21:43)
[2020-12-17] MEDS: ASPIRIN 81 MG PO SCH (22:09)
[2020-12-17] MEDS: DOCUSATE 100 MG CAP PO SCH (22:09)
[2020-12-17 22:32] LABS: Appearance,Urine Clear (Clear); Bilirubin,Urine Negative (Negative); Blood,Urine Negative (Negative); Color,Urine Yellow; Glucose,Urine (UA) Negative (Negative); Ketones,Urine Negative (Negative); Leukocyte Esterase,Urine Negative (Negative); Nitrite,Urine Negative (Negative); PH, Urine 6.5 (5.0-8.0); Protein,Urine Negative (Negative); Urobilinogen,Urine <2.0 mg/dL (<2.0)
--- NOTE | 2020-12-17 23:21 | ED ---
General Adult HPI - General Chief complaint: Extremity Injury, Lower Stated complaint: Hip Fracture Time Seen by Provider: 12/17/20 20:14 Source: patient, EMS, RN notes reviewed, old records reviewed Mode of arrival: EMS Limitations: physical limitation - History of Present Illness Initial comments: Patient is an 89-year-old female with past medical history remarkable for CAD, GERD, hypertension, prior MIs who lives in a nursing facility. Patient presents from the nursing facility over concern for a left intertrochanteric fracture. Patient fell on November 21, and is now December 17. Since that time she has had numerous negative pelvic x-rays and hip x-rays. CT today revealed the intertrochanteric fracture. Since her fall, she is been unable to ambulate at the nursing facility. She denies any numbness or other injuries after the fall. Denies any chest pain, headache, abdominal pain, nausea, vomiting. Patient states she does have a bedsore that the to change from dressings frequently on on her back. She otherwise has no acute complaints at this time. Patient was sent by PCP for orthopedic evaluation secondary to the fracture. - Related Data Home Medications Medication Instructions Recorded Confirmed hydroCHLOROthiazide 25 mg PO MOWEFR@0800 10/22/18 12/17/20 Baclofen 5 mg PO BID PRN 10/15/19 12/17/20 Baclofen 5 mg PO HS@209910/15/19 12/17/20 Calcium Carbonate [Tums] 1,000 mg PO Q8H PRN 10/15/19 12/17/20 DULoxetine HCL [Cymbalta] 30 mg PO DAILY@0800 10/15/19 12/17/20 Magnesium Hydroxide [Milk of 2,400 mg PO DAILY PRN 10/15/19 12/17/20 Magnesia] Melatonin 3 mg PO HS@2100 10/15/19 12/17/20 Pantoprazole [Protonix] 40 mg PO DAILY@0800 10/15/19 12/17/20 Polyethylene Glycol 3350 [Miralax] 17 gm PO Q48H 10/15/19 12/17/20 Simethicone [Gas-X] 125 mg PO DAILY PRN 10/15/19 12/17/20 atenoloL [Atenolol] 25 mg PO DAILY@0800 10/15/19 12/17/20 ALPRAZolam [Xanax] 0.25 mg PO HS@2100 12/17/20 12/17/20 Acetaminophen Tab [Tylenol Tab] 500 mg PO Q6H PRN 12/17/20 12/17/20 Acetaminophen Tab [Tylenol] 650 mg PO BID@0800,2000 12/17/20 12/17/20 Acetaminophen [Tylenol 8 Hour] 1,300 mg PO Q4H PRN 12/17/20 12/17/20 Aspirin EC [Ecotrin Low Dose] 81 mg PO BID@0800,1700 12/17/20 12/17/20 Ergocalciferol (Vitamin D2) 1,250 mcg PO FR 12/17/20 12/17/20 [Drisdol (50,000 Iu)] Lactose-Reduced Food [Ensure Plus] 1 can PO BID@0800,1700 12/17/20 12/17/20 Lidocaine 5% Cream 1 applicate TOPICAL HS PRN 12/17/20 12/17/20 Liquacel 30 ml PO DAILY@1200 12/17/20 12/17/20 Loperamide HCl [Imodium A-D] 2 mg PO ACHS PRN 12/17/20 12/17/20 Magic Cup 1 can PO Q48H 12/17/20 12/17/20 Na Phos,M-B/Na Phos,Di-Ba [Fleet 133 ml RECTAL DAILY PRN 12/17/20 12/17/20 Adult] Olopatadine HCl [Patanol] 1 drop BOTH EYES BID@0800,1700 12/17/20 12/17/20 Polyethylene Glycol 3350 [Miralax] 17 gm PO Q24H PRN 12/17/20 12/17/20 Sennosides-Docusate Sodium 2 tab PO BID@0800,1700 12/17/20 12/17/20 [Senokot-S] Sodium Chloride [Saline Nasal 1 spray EA NOSTRIL HS@209912/17/20 12/17/20 [place]] amLODIPine [Norvasc] 5 mg PO DAILY@0800 12/17/20 12/17/20 bisacodyL [Dulcolax] 10 mg RECTAL DAILY PRN 12/17/20 12/17/20 fentaNYL 50MCG/HR PATCH [Duragesic 50 mcg TRANSDERM Q72H 12/17/20 12/17/20 50MCG/HR] Previous Rx's Medication Instructions Recorded traMADol HCl [Ultram] 25 mg PO Q8HR PRN #28 tab 10/18/19 Allergies Allergy/AdvReac Type Severity Reaction Status Date / Time No Known Allergies Allergy Verified 12/17/20 20:50 Review of Systems ROS Statement: Those systems with pertinent positive or pertinent negative responses have been documented in the HPI. Review of Systems: CONST: Denies fever EYES: Denies blurry vision ENT: Denies nasal congestion C/V: Denies Chest pain RESP: Denies shortness of breath GI: Denies abdominal pain : Denies dysuria SKIN: Denies rash. MSK: Endorses left hip pain NEURO: Denies headache ROS Other: All systems not noted in ROS Statement are negative. Past Medical History Past Medical History: Coronary Artery Disease (CAD), GERD/Reflux, Hypertension, Myocardial Infarction (CA), Osteoarthritis (OA) Additional Past Medical History / Comment(s): "esophagus stricture-appointment next thursday to widen it." Hypertension and hypertensive cardiovascular disease, overactive bladder, osteo-arthritis, esophageal stricture, CAD, CA, hard of hearing. Lumbar vertebra fracture Last Myocardial Infarction Date:: unsure History of Any Multi-Drug Resistant Organisms: MRSA Date of last positivie culture/infection: 03/14/20 MDRO Source:: [place] MRSA Past Surgical History: Hysterectomy Additional Past Surgical History / Comment(s): Left arm ORIF. Bladder suspen hayder surgery 2, hysterectomy, cataract surgery 2. Past Anesthesia/Blood Transfusion Reactions: No Reported Reaction Past Psychological History: No Psychological Hx Reported Smoking Status: Never smoker Past Alcohol Use History: None Reported Past Drug Use History: None Reported - Past Family History Mother Family Medical History: Coronary Artery Disease (CAD) Father Family Medical History: Cancer Brother(s) Family Medical History: Blood Disorder Sister(s) Family Medical History: Cancer Daughter(s) Family Medical History: No Reported History Son(s) Family Medical History: Coronary Artery Disease (CAD) General Exam - General Exam Comments Initial Comments: General: Appears in no acute distress. HEAD: Normal with no signs of head trauma. EYES: PERRLA, EOMI, conjunctiva normal, no discharge. ENT: Hearing grossly intact, normal oropharynx. RESPIRATORY: Clear breath sounds bilaterally. No wheezes, rales, or rhonchi. C/V: Regular rate and rhythm. S1 and S2 auscultated, no edema, peripheral pulses 2+ and intact throughout ABD: Abd is soft, nontender, nondistended EXT: Left lower extremity is lengthened with a decent amount of pain over the left hip. She is neurovascular intact throughout, particularly in the left lower extremity. She is no other obvious deformities. SKIN: No rashes or lesions observed on exposed skin. NEURO: Alert and oriented 4. No focal sensory or strength deficits. She is neurovascularly intact throughout. Limitations: physical limitation Course Vital Signs 12/17/20 12/17/20 20:07 22:09 Temperature 97.9 F Pulse Rate 66 60 Respiratory 16 17 Rate Blood Pressure 135/82 145/69 O2 Sat by Pulse 95 95 Oximetry Medical Decision Making - Medical Decision Making Based on the patient's presentation and physical exam, I'm concerned for a left hip fracture. Patient does present with the CT imaging and study which is also available in our system. It does show that there is a left intertrochanteric fracture of the left femur. Therefore we will obtain preoperative laboratory studies. She'll be given pain management consisting of IV Toradol and a lidocaine patch. She'll be started on maintenance IV fluids. She'll be made nothing by mouth at midnight. We will consult orthopedic surgery for admission. The patient was in agreement with this plan. I spoke with orthopedic surgery, Dr. Hidalgo, who accepted the admission. Patient will likely go to the OR tomorrow evening. I consult with the patient's PCP, Dr. nava, for medical management. He was in agreement with this plan. Laboratory studies were remarkable for a mildly elevated alkaline phosphatase of 199. The remainder of her labs are unremarkable. The patient was therefore admitted in serious condition. - Lab Data Result diagrams: 12/17/20 20:45 12/17/20 20:45 Lab Results 12/17/20 12/17/20 12/17/20 Range/Units 20:45 20:45 20:45 WBC 4.2 (3.8-10.6) k/uL RBC 3.89 (3.80-5.40) m/uL Hgb 11.9 (11.4-16.0) gm/dL Hct 38.2 (34.0-46.0) % MCV 98.3 (80.0-100.0) fL MCH 30.5 (25.0-35.0) pg MCHC 31.0 (31.0-37.0) g/dL RDW 14.8 (11.5-15.5) % Plt Count 403 (150-450) k/uL MPV 6.6 Neutrophils % 53 % Lymphocytes % 30 % Monocytes % 7 % Eosinophils % 6 % Basophils % 1 % Neutrophils # 2.2 (1.3-7.7) k/uL Lymphocytes # 1.3 (1.0-4.8) k/uL Monocytes # 0.3 (0-1.0) k/uL Eosinophils # 0.2 (0-0.7) k/uL Basophils # 0.0 (0-0.2) k/uL PT 10.4 (9.0-12.0) sec INR 1.0 (<1.2) APTT 23.5 (22.0-30.0) sec Sodium (137-145) mmol/L Potassium (3.5-5.1) mmol/L Chloride (98-107) mmol/L Carbon Dioxide (22-30) mmol/L Anion Gap mmol/L BUN (7-17) mg/dL Creatinine (0.52-1.04) mg/dL Est GFR (CKD-EPI)AfAm (>60 ml/min/1.73 sqM) Est GFR (CKD-EPI)NonAf (>60 ml/min/1.73 sqM) Glucose (74-99) mg/dL Calcium (8.4-10.2) mg/dL Total Bilirubin (0.2-1.3) mg/dL AST (14-36) U/L ALT (4-34) U/L Alkaline Phosphatase (38-126) U/L Total Protein (6.3-8.2) g/dL Albumin (3.5-5.0) g/dL Urine Color Yellow Urine Appearance Clear (Clear) Urine pH 6.5 (5.0-8.0) Ur Specific [place] 1.020 (1.001-1.035) Urine Protein Negative (Negative) Urine Glucose (UA) Negative (Negative) Urine Ketones Negative (Negative) Urine Blood Negative (Negative) Urine Nitrite Negative (Negative) Urine Bilirubin Negative (Negative) Urine Urobilinogen <2.0 (<2.0) mg/dL Ur Leukocyte Esterase Negative (Negative) 12/17/20 Range/Units 20:45 WBC (3.8-10.6) k/uL RBC (3.80-5.40) m/uL Hgb (11.4-16.0) gm/dL Hct (34.0-46.0) % MCV (80.0-100.0) fL MCH (25.0-35.0) pg MCHC (31.0-37.0) g/dL RDW (11.5-15.5) % Plt Count (150-450) k/uL MPV Neutrophils % % Lymphocytes % % Monocytes % % Eosinophils % % Basophils % % Neutrophils # (1.3-7.7) k/uL Lymphocytes # (1.0-4.8) k/uL Monocytes # (0-1.0) k/uL Eosinophils # (0-0.7) k/uL Basophils # (0-0.2) k/uL PT (9.0-12.0) sec INR (<1.2) APTT (22.0-30.0) sec Sodium 138 (137-145) mmol/L Potassium 4.3 (3.5-5.1) mmol/L Chloride 102 (98-107) mmol/L Carbon Dioxide 29 (22-30) mmol/L Anion Gap 7 mmol/L BUN 30 H (7-17) mg/dL Creatinine 0.66 (0.52-1.04) mg/dL Est GFR (CKD-EPI)AfAm >90 (>60 ml/min/1.73 sqM) Est GFR (CKD-EPI)NonAf 79 (>60 ml/min/1.73 sqM) Glucose 109 H (74-99) mg/dL Calcium 9.5 (8.4-10.2) mg/dL Total Bilirubin 0.1 L (0.2-1.3) mg/dL AST 36 (14-36) U/L ALT 14 (4-34) U/L Alkaline Phosphatase 199 H (38-126) U/L Total Protein 7.6 (6.3-8.2) g/dL Albumin 3.6 (3.5-5.0) g/dL Urine Color Urine Appearance (Clear) Urine pH (5.0-8.0) Ur Specific [place] (1.001-1.035) Urine Protein (Negative) Urine Glucose (UA) (Negative) Urine Ketones (Negative) Urine Blood (Negative) Urine Nitrite (Negative) Urine Bilirubin (Negative) Urine Urobilinogen (<2.0) mg/dL Ur Leukocyte Esterase (Negative) Disposition Clinical Impression: Intertrochanteric fracture of left femur, Hip pain Disposition: ADMITTED IP TO THIS [facility] Condition: Serious
[2020-12-18] MEDS: atenoloL 25 MG TAB PO SCH (08:36)
[2020-12-18] MEDS: PANTOPRAZOLE 40 MG TABLET PO SCH (08:36)
[2020-12-18] MEDS: LIDOCAINE 5% PATCH TOPICAL SCH (09:00)
[2020-12-18] MEDS ORDERED: amLODIPine 10 MG TAB PO SCH (09:00)
[2020-12-18] MEDS ORDERED: BACLOFEN 10 MG TAB PO PRN (10:27)
[2020-12-18] MEDS ORDERED: LIDOCAINE 2% GEL 30 ML TUBE TOPICAL PRN (10:27)
[2020-12-18] MEDS ORDERED: traMADol 50 MG TAB PO PRN ×2 (10:27→18:11)
[2020-12-18] MEDS ORDERED: polyethylene glycoL 3350 17 GM POWD.PACK PO PRN (10:27)
[2020-12-18] MEDS ORDERED: NON FORMULARY DRUG (Magic Cup 1 EACH Ml) PO SCH (10:30)
--- NOTE | 2020-12-18 10:48 | XR ---
EXAMINATION TYPE: XR chest 1V DATE OF EXAM: 12/18/2020 COMPARISON: 10/15/2019 INDICATION: Left hip pain, fall TECHNIQUE: Single frontal view of the chest is obtained. FINDINGS: The heart size is normal. The pulmonary vasculature is normal. There is some mild infiltrate through the right perihilar region. Correlate for Atelectasis or mild pneumonia. No pneumothorax is evident. IMPRESSION: 1. Mild infiltrates in the right perihilar region along the minor fissure. Correlate for atelectasis or pneumonia.
--- NOTE | 2020-12-18 10:52 | XR ---
EXAMINATION TYPE: XR Hip Complete LT DATE OF EXAM: 12/18/2020 COMPARISON: CT left hip 12/17/2020 HISTORY: Left hip pain TECHNIQUE: 2 view left hip FINDINGS: Femoral head articulates with the acetabulum. CT has been performed identifying the intertr ochanteric fracture. This is less well-visualized on the x-ray. IMPRESSION: 1. Intertrochanteric fracture appears subtle on the plain films. Please see CT report of 12/17/2020.
--- NOTE | 2020-12-18 12:00 | P.CONS ---
History of Present Illness - Reason for Consult Consult date: 12/18/20 Medical management - History of Present Illness HISTORY OF PRESENT ILLNESS This is an 89-year-old female patient of Dr. Velazquez, residing at [facility] as long- term resident, with past medical history of coronary artery disease, hypertension hypertensive cardiovascular disease, overactive bladder, gene ralized osteoarthritis, esophageal stricture, patient was last hospitalized in September 2019 at which time she was treated for right hip fracture. Patient had a fall on November 21 and is unable to ambulate. Patient has had multiple x-rays that have been negative. Patient presented with pressure ulcer Patient was initially sent into the hospital for CAT scan of the left hip which revealed intratrochanteric fracture extending from the superior aspect of the lesser trochanter to the medial aspect of the greater trochanter. There appears to be some impaction of the fracture. Patient was then advised to go to the emergency center for further evaluation and treatment. Patient has been afebrile, HR 66, BP 135/82, PO 95% on room air. CBC unremarkable. Electrolytes normal, BUN 30, creatinine 0.66, BS 109. Alkaline phoshatase 199. Urinalysis negative. 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 Chest x-ray shows mild infiltrates in the right perihilar region along the minor fissure. Correlate for atelectasis or pneumonia. Patient admitted to the med-surg floor to orthopedic services and we have been asked to follow patient for medical management. Patient is seen this morning in the emergency center waiting for [facility] bed. REVIEW OF SYSTEMS Constitutional: No fever, no chills, no night sweats. No weight change. No weakness, fatigue or lethargy. No daytime sleepiness. EENT: No headache. No blurred vision or double vision, no loss of vision. No loss of Hearing, no ringing in the ears, no dizziness. No nasal drainage or congestion. No epistaxis. No sore throat. Lungs: No shortness of breath, cough, no sputum production. No wheezing. Cardiovascular: No chest pain, no lower extremity edema. No palpitations. No paroxysmal nocturnal dyspnea. No orthopnea. No lightheadedness or dizziness. No syncopal episodes. Abdominal: No abdominal pain. No nausea, vomiting. No diarrhea. No con stipation. No bloody or tarry stools.. No loss of appetite. Genitourinary: No dysuria, increased frequency, urgency. No urinary retention. Musculoskeletal: No myalgias. No muscle weakness, no gait dysfunction, no frequent falls. No back pain. No neck pain. Integumentary: No wounds, no lesions. No rash or pruritus. No unusual bruising. No change in hair or nails. Neurologic: No aphasia. No facial droop. No change in mentation. No head injury. No headache. No paralysis. No paresthesia. Psychiatric: No depression. No anxiety. No mood swings. Endocrine: No abnormal blood sugars. No weight change. No excessive sweating or thirst. No cold intolerance. SOCIAL HISTORY Patient is a lifelong nonsmoker, no alcohol use, illicit drug use. Patient resides at [facility] as long-term resident. FAMILY HISTORY Mother at age of 88 from CAD. Father at age 85 from prostate cancer. Patient had 3 brothers 2 of them from blood disorders and the other one from Alzheimer dementia. Patient had 3 sisters one with colon cancer one from a supposes and the other one from heart disease. Patient has one daughter who is healthy. Patient has one son with CAD, CABG, and COPD. PHYSICAL EXAMINATION Gen: This is an 89-year-old female patient resting in bed and appears to be in no acute distress. No respiratory distress noted. HEENT: Head is atraumatic, normocephalic. Pupils equal, round. Sclerae is anict aquilino. NECK: Supple. No JVD. No lymphadenopathy. No thyromegaly. LUNGS: Clear to auscultation. No wheezes or rhonchi. No intercostal retractions. HEART: Regular rate and rhythm. Systolic murmur at the right sternal border and a systolic murmur at the apex. ABDOMEN: Soft. Bowel sounds are present. No masses. No tenderness. EXTREMITIES: No pedal edema. No calf tenderness. Tenderness at the left hip. MIld lateral rotation of the left leg NEUROLOGICAL: Patient is awake, alert and oriented x3. Cranial nerves 2 through 12 are grossly intact. ASSESSMENT AND PLAN 1. Intertrochanetic fracture of the left femur. Patient is medically cleared for surgical intervention. Continue current pain management, incentive spirometry to reduce incidence of atelectasis and hospital-acquired pneumonia, PT and OT per orthopedics. 2. Hypertension and hypertensive cardio vascular disease. Continue patient on amlodipine 10 mg once every day, atenolol 25 mg daily and hydrochlorothiazide 25 mg orally once every day. 3. Osteoarthritis. Continue current pain management. Continue current pain management. 4. 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 Continue Ultram 25 mg every 8 hours as needed, Lidoderm patch topically daily, fentanyl patch 50 g per hour every 72 hours, baclofen 5 mg twice daily as needed and at bedtime. 5. Overactive bladder. 6. Esophageal stricture. 7. Severe protein calorie malnutrition with BMI of 19. Continue Magic cup, Ensure Plus twice daily. 8. Generalized anxiety disorder and Insomnia. Continue Xanax 0.25 mg at bedtime, Cymbalta 30 mg daily, melatonin 3 mg at bedtime,. 9. GI prophylaxis and gastroesophageal reflux disease. Continue Protonix 40 mg daily. 10. DVT prophylaxis per orthopedics. Patient will be admitted to the hospital for a minimum of 2 night stay. DISCHARGE PLAN Return to [facility]. Impression and plan of care have been directed as dictated by the signing physician. Michell Altamirano nurse practitioner acting as scribe for signing physician. Past Medical History Past Medical History: Coronary Artery Disease (CAD), GERD/Reflux, Hypertension, Myocardial Infarction ([place]), Osteoarthritis (OA) Additional Past Medical History / Comment(s): "esophagus stricture-appointment next thursday to widen it." Hypertension and hypertensive cardiovascular disease, overactive bladder, osteo-arthritis, esophageal stricture, CAD, [place], hard of hearing. Lumbar vertebra fracture Last Myocardial Infarction Date:: unsure History of Any Multi-Drug Resistant Organisms: MRSA Year Discovered:: 03/14/20 MDRO Source:: [place] MRSA Past Surgical History: Hysterectomy Additional Past Surgical History / Comment(s): Left arm ORIF. Bladder suspension surgery 2, hysterectomy, cataract surgery 2. Past Anesthesia/Blood Transfusion Reactions: No Reported Reaction Past Psychological History: No Psychological Hx Reported Smoking Status: Never smoker Past Alcohol Use History: None Reported Past Drug Use History: None Reported - Past Family History Mother Family Medical History: Coronary Artery Disease (CAD) Father Family Medical History: Cancer Brother(s) Family Medical History: Blood Disorder Sister(s) Family Medical History: Cancer Daughter(s) Family Medical History: No Reported History Son(s) Family Medical History: Coronary Artery Disease (CAD) Medications and Allergies Home Medications Medication Instructions Recorded Confirmed Type hydroCHLOROthiazide 25 mg PO MOWEFR@0800 10/22/18 12/17/20 History Baclofen 5 mg PO BID PRN 10/15/19 12/17/20 History Baclofen 5 mg PO HS@209910/15/19 12/17/20 History Calcium Carbonate [Tums] 1,000 mg PO Q8H PRN 10/15/19 12/17/20 History DULoxetine HCL [Cymbalta] 30 mg PO DAILY@0800 10/15/19 12/17/20 History Magnesium Hydroxide [Milk of 2,400 mg PO DAILY PRN 10/15/19 12/17/20 History Magnesia] Melatonin 3 mg PO HS@209910/15/19 12/17/20 History Pantoprazole [Protonix] 40 mg PO DAILY@0800 10/15/19 12/17/20 History Polyethylene Glycol 3350 [Miralax] 17 gm PO Q48H 10/15/19 12/17/20 History Simethicone [Gas-X] 125 mg PO DAILY PRN 10/15/19 12/17/20 History atenoloL [Atenolol] 25 mg PO DAILY@0800 10/15/19 12/17/20 History traMADol HCl [Ultram] 25 mg PO Q8HR PRN #28 tab 10/18/19 12/17/20 Rx ALPRAZolam [Xanax] 0.25 mg PO HS@209912/17/20 12/17/20 History Acetaminophen Tab [Tylenol Tab] 500 mg PO Q6H PRN 12/17/20 12/17/20 History Acetaminophen Tab [Tylenol] 650 mg PO BID@0800,2000 12/17/20 12/17/20 History Acetaminophen [Tylenol 8 Hour] 1,300 mg PO Q4H PRN 12/17/20 12/17/20 History Aspirin EC [Ecotrin Low Dose] 81 mg PO BID@0800,1700 12/17/20 12/17/20 History Ergocalciferol (Vitamin D2) 1,250 mcg PO FR 12/17/20 12/17/20 History [Drisdol (50,000 Iu)] Lactose-Reduced Food [Ensure Plus] 1 can PO BID@0800,1700 12/17/20 12/17/20 History Lidocaine 5% Cream 1 applicate TOPICAL HS PRN 12/17/20 12/17/20 History Liquacel 30 ml PO DAILY@1200 12/17/20 12/17/20 History Loperamide HCl [Imodium A-D] 2 mg PO ACHS PRN 12/17/20 12/17/20 History Magic Cup 1 can PO Q48H 12/17/20 12/17/20 History Na Phos,M-B/Na Phos,Di-Ba [Fleet 133 ml RECTAL DAILY PRN 12/17/20 12/17/20 History Adult] Olopatadine HCl [Patanol] 1 drop BOTH EYES BID@0800,1700 12/17/20 12/17/20 History Polyethylene Glycol 3350 [Miralax] 17 gm PO Q24H PRN 12/17/20 12/17/20 History Sennosides-Docusate Sodium 2 tab PO BID@0800,1700 12/17/20 12/17/20 History [Senokot-S] Sodium Chloride [Saline Nasal 1 spray EA NOSTRIL HS@2100 12/17/20 12/17/20 History Virgie] amLODIPine [Norvasc] 5 mg PO DAILY@0800 12/17/20 12/17/20 History bisacodyL [Dulcolax] 10 mg RECTAL DAILY PRN 12/17/20 12/17/20 History fentaNYL 50MCG/HR PATCH [Duragesic 50 mcg TRANSDERM Q72H 12/17/20 12/17/20 History 50MCG/HR] Allergies Allergy/AdvReac Type Severity Reaction Status Date / Time No Known Allergies Allergy Verified 12/17/20 20:50 Physical Exam Vitals: Vital Signs Temp Pulse Resp BP Pulse Ox 12/18/20 08:44 68 18 167/74 96 12/18/20 06:03 97.8 F 60 20 135/63 95 12/18/20 05:00 59 L 16 135/63 92 L 12/18/20 01:00 60 16 125/69 99 12/17/20 22:09 60 17 145/69 95 12/17/20 20:07 97.9 F 66 16 135/82 95 Intake and Output 12/17/20 12/18/20 12/18/20 22:59 06:59 14:59 Other: Weight 46.947 kg Results CBC & Chem 7: 12/17/20 20:45 12/17/20 20:45 Labs: Abnormal Lab Results - Last 24 Hours (Table) 12/17/20 Range/Units 20:45 BUN 30 H (7-17) mg/dL Glucose 109 H (74-99) mg/dL Total Bilirubin 0.1 L (0.2-1.3) mg/dL Alkaline Phosphatase 199 H (38-126) U/L
[2020-12-18] MEDS: ASPIRIN 81 MG PO SCH (13:04)
[2020-12-18] MEDS: DOCUSATE 100 MG CAP PO SCH ×2 (13:04→22:07)
--- NOTE | 2020-12-18 13:12 | P.HPOR ---
History of Present Illness H&P Date: 12/18/20 Chief Complaint: Left hip pain and inability to ambulate due to hip Patient is a very pleasant 89-year-old female who is seen and examined at the bedside for further evaluation in regards to her left hip. She resides at a [facility]. Patient had sustained a fall on 11/21/2020 and has been unable to ambulate on her left lower extremity since that time. It is reported she has had numerous x-rays of the pelvis and hip without any significant findings. She was transferred to [facility] for further evaluation. CT imaging of the left hip was taken which does show evidence of a left intertrochanteric hip fracture. She was admitted to our service for further treatment and evaluation. She states she does have pain with any active range of motion of the left hip. She denies any other leg pain. She denies any other injuries at the time of the fall. She does have a history of previous right intertrochanteric hip fracture requiring surgical intervention in September 2019. Patient has been seen and examined by medicine today who is cleared patient for surgical intervention. Patient states given her fracture and pain she would like to proceed forward with surgical intervention today in regards to her left hip. She is currently nonweightbearing on the left lower extremity and at bedrest. Patient's past medical history includes coronary artery disease, hypertension, and history of pressure ulcer. Past Medical History Past Medical History: Coronary Artery Disease (CAD), GERD/Reflux, Hypertension, Myocardial Infarction (MN), Osteoarthritis (OA) Additional Past Medical History / Comment(s): "esophagus stricture-appointment next thursday to widen it." Hypertension and hypertensive cardiovascular disease, overactive bladder, osteo-arthritis, esophageal stricture, CAD, MN, hard of hearing. Lumbar vertebra fracture Last Myocardial Infarction Date:: unsure History of Any Multi-Drug Resistant Organisms: MRSA Date of last positivie culture/infection: 03/14/20 MDRO Source:: BUTOOCK MRSA Past Surgical History: Hysterectomy Additional Past Surgical History / Comment(s): Left arm ORIF. Bladder suspension surgery 2, hysterectomy, cataract surgery 2. Past Anesthesia/Blood Transfusion Reactions: No Reported Reaction Past Psychological History: No Psychological Hx Reported Smoking Status: Never smoker Past Alcohol Use History: None Reported Past Drug Use History: None Reported - Past Family History Mother Family Medical History: Coronary Artery Disease (CAD) Father Family Medical History: Cancer Brother(s) Family Medical History: Blood Disorder Sister(s) Family Medical History: Cancer Daughter(s) Family Medical History: No Reported History Son(s) Family Medical History: Coronary Artery Disease (CAD) Medications and Allergies Home Medications Medication Instructions Recorded Confirmed Type hydroCHLOROthiazide 25 mg PO MOWEFR@0800 10/22/18 12/17/20 History Baclofen 5 mg PO BID PRN 10/15/19 12/17/20 History Baclofen 5 mg PO HS@209910/15/19 12/17/20 History Calcium Carbonate [Tums] 1,000 mg PO Q8H PRN 10/15/19 12/17/20 History DULoxetine HCL [Cymbalta] 30 mg PO DAILY@0800 10/15/19 12/17/20 History Magnesium Hydroxide [Milk of 2,400 mg PO DAILY PRN 10/15/19 12/17/20 History Magnesia] Melatonin 3 mg PO HS@209910/15/19 12/17/20 History Pantoprazole [Protonix] 40 mg PO DAILY@0800 10/15/19 12/17/20 History Polyethylene Glycol 3350 [Miralax] 17 gm PO Q48H 10/15/19 12/17/20 History Simethicone [Gas-X] 125 mg PO DAILY PRN 10/15/19 12/17/20 History atenoloL [Atenolol] 25 mg PO DAILY@0800 10/15/19 12/17/20 History traMADol HCl [Ultram] 25 mg PO Q8HR PRN #28 tab 10/18/19 12/17/20 Rx ALPRAZolam [Xanax] 0.25 mg PO HS@209912/17/20 12/17/20 History Acetaminophen Tab [Tylenol Tab] 500 mg PO Q6H PRN 12/17/20 12/17/20 History Acetaminophen Tab [Tylenol] 650 mg PO BID@0800,2000 12/17/20 12/17/20 History Acetaminophen [Tylenol 8 Hour] 1,300 mg PO Q4H PRN 12/17/20 12/17/20 History Aspirin EC [Ecotrin Low Dose] 81 mg PO BID@0800,1700 12/17/20 12/17/20 History Ergocalciferol (Vitamin D2) 1,250 mcg PO FR 12/17/20 12/17/20 History [Drisdol (50,000 Iu)] Lactose-Reduced Food [Ensure Plus] 1 can PO BID@0800,1700 12/17/20 12/17/20 History Lidocaine 5% Cream 1 applicate TOPICAL HS PRN 12/17/20 12/17/20 History Liquacel 30 ml PO DAILY@1200 12/17/20 12/17/20 History Loperamide HCl [Imodium A-D] 2 mg PO ACHS PRN 12/17/20 12/17/20 History Magic Cup 1 can PO Q48H 12/17/20 12/17/20 History Na Phos,M-B/Na Phos,Di-Ba [Fleet 133 ml RECTAL DAILY PRN 12/17/20 12/17/20 History Adult] Olopatadine HCl [Patanol] 1 drop BOTH EYES BID@0800,1700 12/17/20 12/17/20 History Polyethylene Glycol 3350 [Miralax] 17 gm PO Q24H PRN 12/17/20 12/17/20 History Sennosides-Docusate Sodium 2 tab PO BID@0800,1700 12/17/20 12/17/20 History [Senokot-S] Sodium Chloride [Saline Nasal 1 spray EA NOSTRIL HS@2100 12/17/20 12/17/20 History Hurst] amLODIPine [Norvasc] 5 mg PO DAILY@0800 12/17/20 12/17/20 History bisacodyL [Dulcolax] 10 mg RECTAL DAILY PRN 12/17/20 12/17/20 History fentaNYL 50MCG/HR PATCH [Duragesic 50 mcg TRANSDERM Q72H 12/17/20 12/17/20 History 50MCG/HR] Allergies Allergy/AdvReac Type Severity Reaction Status Date / Time No Known Allergies Allergy Verified 12/17/20 20:50 Physical Examination Physical exam: Patient is awake, alert, and oriented 3 Vital signs stable Good chest excursion with deep inspiration and expiration Abdomen soft nontender Left lower extremity is shortened and externally rotated Pain with palpation of the left hip Significant pain with internal and external rotation of the left hip No pain with internal and external rotation of the right hip Neurovascularly intact bilateral lower extremities Dorsiflexion, plantarflexion, and extensor hallucis longus positive sustained bilaterally Calves are soft and supple; No signs or symptoms of DVT; No calf pain Results Pertinent studies: X-ray of the left hip taken on 12/18/2020: Subtle left intertrochanteric hip fracture on plain film imaging CT of the left hip taken on 12/17/2020: Left intertrochanteric fracture extending from the superior aspect of the lesser trochanter to the medial aspect of the greater trochanter with some impaction - Labs Labs: Abnormal Lab Results - Last 24 Hours (Table) 12/17/20 Range/Units 20:45 BUN 30 H (7-17) mg/dL Glucose 109 H (74-99) mg/dL Total Bilirubin 0.1 L (0.2-1.3) mg/dL Alkaline Phosphatase 199 H (38-126) U/L H & H 12/17/20 Range/Units 20:45 Hgb 11.9 (11.4-16.0) gm/dL Hct 38.2 (34.0-46.0) % Coagulation 12/17/20 Range/Units 20:45 INR 1.0 (<1.2) Result Diagrams: 12/17/20 20:45 12/17/20 20:45 Assessment and Plan Assessment: Assessment: Status post fall on 11/21/2020 Inability ambulate due to hip Left hip pain Left intertrochanteric hip fracture History of coronary artery disease History of hypertension History of pressure ulcer (1) Status post fall Current Visit: Yes Status: Acute Code(s): Z91.81 - HISTORY OF FALLING SNOMED Code(s): 570030869 (2) Inability to ambulate due to left hip Current Visit: Yes Status: Acute Code(s): R26.2 - DIFFICULTY IN WALKING, NOT ELSEWHERE CLASSIFIED SNOMED Code(s): 363604251 (3) History of coronary artery disease Current Visit: Yes Status: Acute Code(s): Z86.79 - PERSONAL HISTORY OF OTHER DISEASES OF THE CIRCULATORY SYSTEM SNOMED Code(s): 075680049 (4) History of hypertension Current Visit: Yes Status: Acute Code(s): Z86.79 - PERSONAL HISTORY OF OTHER DISEASES OF THE CIRCULATORY SYSTEM SNOMED Code(s): 466068653 (5) History of pressure ulcer Current Visit: Yes Status: Acute Code(s): Z87.2 - PERSONAL HISTORY OF DISEASES OF THE SKIN, SUBCU SNOMED Code(s): 228062733 (6) Hip pain Current Visit: Yes Status: Acute Code(s): M25.559 - PAIN IN UNSPECIFIED HIP SNOMED Code(s): 16694588 (7) Intertrochanteric fracture of left femur Current Visit: Yes Status: Acute Code(s): S72.142A - DISPLACED INTERTROCHANTERIC FRACTURE OF LEFT FEMUR, INIT SNOMED Code(s): 339680220 Plan: Plan: 1. Reviewing of CT and x-ray imaging of the left hip does show evidence of a left intertrochanteric hip fracture. Patient sustained a fall on 11/21/2020 and has been unable to ambulate since that time. Patient does have pain with any active range of motion of the left hip. Patient states given her left hip pain, inability ambulate, and evidence of fracture, she like to proceed for surgical intervention in regards to her left hip. We will currently plan to proceed forward with surgical intervention tentatively scheduled for today, 12/18/2020. The proposed surgical intervention is a left hip intramedullary nail fixation for left intertrochanteric hip fracture. We feel surgical intervention provides the best opportunity for her to regain a more normal range of motion of her left hip and for her to be able to increase her ambulation and mobility. We discussed that without surgical intervention, she would have significant difficulty in improving her ambulation status and would most likely have to remain non-ambulatory. Patient states at this time she would like to proceed forward with surgical intervention as she feels it provides her the best opportunity to have some relief of her symptoms and improvement in her ambulation and mobility. Patient will be seen and examined by medicine for surgical clearance and has been cleared. Patient has been nothing by mouth and will continue to be nothing by mouth in anticipation for surgical intervention later today. Patient will continue to be on bed rest and nonweightbearing on the left lower extremity. We will plan for Dawn catheter placement. I discussed these issues with the patient at length and I answered all of their questions to the best of my ability and the patient understands. I discussed the risk of surgical intervention and alternative treatment options. The risk of surgical intervention was explained to the patient in detail. I answered all the patient's questions the best of my ability. The patient would like to proceed forward with surgical intervention and will sign informed consent. Time with Patient: Greater than 30 (Including obtaining history, physical exami nation, reviewing of imaging, and dictation.)
[2020-12-18] MEDS ORDERED: IV FLUID CONTINUATION 1,000 ML IV ONE (15:51)
[2020-12-18] MEDS ORDERED: MIDAZOLAM 2 MG/2 ML VIAL ONE (16:39)
[2020-12-18] MEDS ORDERED: diphenhydrAMINE 50 MG/ML 1 ML VIAL ONE (16:39)
[2020-12-18] MEDS ORDERED: KETAMINE 10 MG/ML 20 ML VIAL ONE (16:39)
[2020-12-18] MEDS ORDERED: fentaNYL (PF) 50 MCG/ML 2 ML AMP ONE (16:39)
[2020-12-18] MEDS ORDERED: SODIUM CHLORIDE 0.9% 50 ML with ceFAZolin 2,000 MG IV ONE ×2 (16:44)
[2020-12-18] MEDS ORDERED: NON FORMULARY DRUG (Lactose-Reduced Food [Ensure Plus] 237 ML Liquid) PO SCH (17:00)
[2020-12-18] MEDS ORDERED: SENNOSIDES-DOCUSATE SODIUM 1 EACH TAB PO SCH (17:00)
[2020-12-18] MEDS ORDERED: ceFAZolin 1,000 MG in SODIUM CHLORIDE 0.9% 1,000 ML IRRIGATION ONE (17:22)
[2020-12-18] MEDS ORDERED: ONDANSETRON 4 MG/2 ML VIAL IVP PRN (18:11)
[2020-12-18] MEDS ORDERED: MAGNESIUM HYDROXIDE 2,400 MG/10 ML CUP PO PRN (18:11)
[2020-12-18] MEDS ORDERED: NALOXONE 0.4 MG/ML 1 ML VIAL IV PRN (18:11)
[2020-12-18] MEDS ORDERED: HYDROmorphone 0.5 MG/0.5 ML SYRINGE IVP PRN (18:11)
[2020-12-18] MEDS ORDERED: BENZOCAINE/MENTHOL LOZENG 1 EACH LOZENGE MUCOUS MEM PRN (18:11)
[2020-12-18] MEDS ORDERED: HYDROcodone/APAP 5-325MG 1 EACH TAB PO PRN (18:11)
--- NOTE | 2020-12-18 18:19 | XR ---
EXAMINATION TYPE: XR Hip Complete LT DATE OF EXAM: 12/18/2020 COMPARISON: NONE HISTORY: Hip surgery TECHNIQUE: 2 views FINDINGS: 2 fluoroscopic images were obtained at show placement of intramedullary gilberto and transverse screw fixing the proximal left femur. No complicating process seen.
--- NOTE | 2020-12-18 18:21 | P.OP ---
Date of Procedure: 12/18/20 Preoperative Diagnosis: left hip intertrochanteric hip fracture, acute traumatic Postoperative Diagnosis: same Anesthesia: spinal Pathology: other (left hip femur reamings to pathology) Condition: stable Disposition: PACU Description of Procedure: Preoperative diagnosis: Intertrochanteric femoral hip fracture, left, acute traumatic Postoperative diagnosis: Same Procedure: intertrochanteric hip screw placement Use of fluoroscopic guidance Closed reduction Surgeon: Dr. Gwen Beth.: events assistant who is present that the entire the case persistence during positioning dissection exposure placement of hardware and closure Anesthesia:spinal per anesthesia Estimated blood loss: approximately 200 mL Components implanted:[employer] InterTAN 135 short nail with 90 mm lag screw 85 mm locking screw and 37.5 mm distal locking screw Disposition: To recovery room in good stable condition Operative indications The patient sustained a injury and suffered a hip fracture at the inter- trochanteric area of her femur due to a fall that apparently occurred approximately 3 weeks ago. Patient was initially evaluated had imaging done which did not show obvious fracture. They tried to start the patient with some ambulation and mobilization however she has not been doing any better and she has been unable to bear weight or walker mobilize due to the pain at her hip. She had further workup and evaluation with computed tomography scan which is found to show a minimally displaced intertrochanteric hip fracture patient was admitted in this regard and we're involving case for this. we obtained a new x- ray which showed very minimally displaced intertrochanteric hip fracture which was difficult to visualize. on evaluation it showed some mild displacement and angulation. We were involved in the case in regard to his hip fracture. After evaluation it was determined that they would be a candidate for hip internal fixation and stabilization via surgical intervention. This would give them the best chance of mobilization and ambulation. We discussed the range of treatment options from conservative to surgical. They elected proceed with surgical intervention. We answered their questions to the best of our ability healing which they can understand. They signed an informed consent. Operative summary After obtaining informed consent evaluation by anesthesia, preoperative evaluation and clearance for medical service, the patient was identified and prepped Dawn area and the surgical site was marked. There brought to the operating room where the given appropriate anesthesia by the anesthesia department in standard fashion without any complications. Once the anesthesia was established we were able to position the patient. The patient was placed on a fracture table with a well-padded perineal post. The operative side was placed in a foot saha stirrup which was well-padded well molded and placed in gentle in-line traction. The nonoperative leg was placed in a padded stirrup. C-arm was brought in and we performed a closed reduction technique at the lefthip. We are able to get good alignment good position of the intertrochanteric fracture with gentle reduction techniques and traction utilizing the fracture table. Once patient was well positioned lower extremity was prepped and draped in normal standard sterile fashion. An appropriate keystone protocol and timeout was completed and were able to proceed with surgeryat the left hip. He started point just proximal to the greater trochanter was established and a median incision approximately 2 inches in length approximately to the greater trochanter. I dissected down through the fascia and I was able to expose the tip of the greater trochanter. A sharp starting hole was established at the tip of the greater trochanter near the junction of the anterior and middle third. Positioning was confirmed with C-arm guidance. I was able to start the awl into the bone and then use a guidepin at the starting point establish down to the level of the lesser trochanter at the intramedullary space. I then used a starting reamer for the greater trochanter placed over the guidepin and reamed down appropriately under C-arm guidance. I was unable to place a guidepin into the intramedullary aspect of the femur and then reamed appropriately to the appropriate length. The positioning was confirmed on C-arm guidance. With the femur appropriately reamed I then chose the appropriate size intramedullary gilberto which was connected to the appropriate jig. The jig was checked for alignment. The area was copiously irrigated and suctioned dry and we're able place the gilberto at intramedullary space through the starting hole appropriately. It was seated down for appropriate position to align the leg pain into the femoral neck and head. A second incision was established at the site for the placement of the lag screw area and the guide was established at the lateral aspect of the femur and a guidepin was drilled into the femoral neck and head and near center center position. With this appropriate alignment and position where a reamer over the guidepin making sure not to penetrate the articular surface. The position was confirmed on C-arm guidance in AP and lateral positions. With this established we were able to place the appropriate size lag screw after measuring. Lag screw was placed into the femoral neck and head good alignment good position with excellent bony purchase. It was appropriately aligned and we placed a locking screw through the gilberto appropriately and checked that the position was established. I was able to drill and place the compression screw immediately adjacent and inferior to the lag screw which gave good compression across the fracture site in good alignment and position. With the area in good position able place a distal locking screw. We utilized the guide sleeve a separate incision was made at the skin. The guide sleeve was placed in the lateral aspect of the femur and the distal locking screw hole was established through the femur and distal locking hole of the intramedullary gilberto. It was measured appropriately and a distal locking screw was placed in good alignment and good position with excellent bony purchase. The position was checked to make sure it was through the appropriate hole in the intramedullary gilberto. With this established we're able to remove the jig completely from the gilberto and final images were taken which showed excellent alignment and position of the hardware and the fracture. With the gilberto in place and the fracture stable, although the incision sites were copiously irrigated and suctioned dry. Good hemostasis was maintained. Deep fascial layers were closed with #1 Vicryl. Subcu tissue was closed with 2-0 Vicryl. Subcuticular tissues closed with 3-0 Vicryl. Was are cleaned and dried with dressed with Mastisol and Steri-Strips Telfa for a force and tape. Drapes were broken down, the hip was held in stable position with the post being removed safely once the positioning was stabilized. The patient was then transferred back to their hospital bed being careful to maintain the hip and C- spine alignment and airway. Once stable to patient was transferred back to the postanesthesia care unit to be readmitted for pain control and DVT prophylaxis medical management and monitoring and mobilization we will continue follow patient closely throughout their postoperative course.
[2020-12-18 20:09] LABS: Basophils % (A) 1 %; Eosinophils # (A) 0.1 k/uL (0-0.7); Eosinophils % (A) 1 %; HCT 33.7 % (34.0-46.0); HGB 10.6 gm/dL (11.4-16.0); Hypochromasia Slight; Lymphocytes # (A) 1.1 k/uL (1.0-4.8); Lymphocytes % (A) 15 %; MCH 31.8 pg (25.0-35.0); MCHC 31.3 g/dL (31.0-37.0); MCV 101.4 fL (80.0-100.0); Macrocytosis Slight; Mean Platelet Volume 6.5; Monocytes # (A) 0.3 k/uL (0-1.0); Monocytes % (A) 4 %; Neutrophils % (A) 78 %; Platelet Count 387 k/uL (150-450); RBC 3.33 m/uL (3.80-5.40); RDW 14.6 % (11.5-15.5); WBC 7.7 k/uL (3.8-10.6)
[2020-12-18] MEDS: KETOROLAC 15 MG/ML 1 ML VIAL IVP PRN (22:02)
[2020-12-18] MEDS: ALPRAZolam 0.25 MG TAB PO SCH (22:06)
[2020-12-18] MEDS: MELATONIN 3 MG TABLET PO SCH (22:06)
[2020-12-18] MEDS: ASPIRIN 325 MG TAB PO SCH (22:06)
[2020-12-18] MEDS: BACLOFEN 10 MG TAB PO SCH (22:07)
[2020-12-18] MEDS: KETOTIFEN 0.025% OPHTH DROPS 5 ML BTL BOTH EYES SCH (22:08)
[2020-12-18] MEDS: SODIUM CHLORIDE 0.9% 1,000 ML IV SCH (22:08)
[2020-12-19] MEDS: SODIUM CHLORIDE 0.9% 1,000 ML IV SCH (06:40)
--- NOTE | 2020-12-19 06:58 | FL ---
Fluoroscopy History: ORIF LEFT HIP ORIF LEFT HIP. 1 min 17 secs FL. 2 IMAGES IN HIP ORDER.
[2020-12-19] MEDS: DULoxetine HCL 30 MG CAPSULE.DR PO SCH (08:04)
[2020-12-19] MEDS: DOCUSATE 100 MG CAP PO SCH ×2 (08:04→20:05)
[2020-12-19] MEDS: ASPIRIN 325 MG TAB PO SCH ×2 (08:04→20:06)
[2020-12-19] MEDS: KETOROLAC 15 MG/ML 1 ML VIAL IVP PRN ×2 (08:04→15:54)
[2020-12-19] MEDS: amLODIPine 5 MG TAB PO SCH (08:05)
[2020-12-19] MEDS: KETOTIFEN 0.025% OPHTH DROPS 5 ML BTL BOTH EYES SCH ×2 (08:05→16:50)
[2020-12-19] MEDS: LIDOCAINE 5% PATCH TOPICAL SCH (08:05)
[2020-12-19] MEDS: SENNOSIDES-DOCUSATE SODIUM 1 EACH TAB PO SCH (08:05)
[2020-12-19] MEDS: atenoloL 25 MG TAB PO SCH (08:05)
[2020-12-19] MEDS: PANTOPRAZOLE 40 MG TABLET PO SCH (08:05)
[2020-12-19] MEDS ORDERED: hydroCHLOROthiazide 25 MG TAB PO SCH (09:00)
[2020-12-19 10:32] VITALS: BMI 19.5
--- NOTE | 2020-12-19 12:21 | P.PN ---
Progress Note - Text Progress Note Date: 12/19/20 Orthopedics: History of present illness: Patient is a very pleasant 89-year-old female who is seen and examined at bedside for follow-up evaluation for her left hip. She is known to have sustained a fall on 11/21/2020. She was recently diagnosed with a left hip intertrochanteric hip fracture. She underwent left intramedullary nail fixation for left intertrochanteric hip fracture yesterday, 12/18/2020. Patient has remained nonweightbearing on the left lower extremity. She states she does continue pain at her left hip. Nursing states she did have difficulty sleeping last night and was restless. Patient does continue to be seen examined by medicine for other medical diagnoses. Currently, at the time of discharge, patient will plan to be discharged back to the rehabilitation facility where she resides. Patient's past medical history includes coronary artery disease, hypertension, and history of pressure ulcer. Physical Exam Intramedullary Rodding for Intertrochanteric Fracture: Status post surgical day number 1 Patient is examined lying in bed Patient is awake and alert, and oriented 3 Vital signs stable Adequate chest excursion with deep inspiration and expiration No signs or symptoms of DVT; no calf pain Lower extremity cuffs in place bilaterally Dressing of the left hip is clean, dry, and intact; no erythema, purulence, or signs of infection Some pain with palpation over the surgical sites Full range of motion of ankles bilaterally Dorsiflexion, plantarflexion, and extensor hallucis longus positive sustained bilaterally Neurovascularly intact bilateral lower extremities Capillary refill less than 2 seconds bilateral lower extremities Pertinent studies: X-ray of the left hip taken on 12/18/2020: Subtle left intertrochanteric hip fracture on plain film imaging CT of the left hip taken on 12/17/2020: Left intertrochanteric fracture extending from the superior aspect of the lesser trochanter to the medial aspect of the greater trochanter with some impaction Assessment: Status post left hip intramedullary nail fixation for left intertrochanteric hip fracture Status post fall on 11/21/2020 Inability ambulate due to hip Left hip pain Left intertrochanteric hip fracture History of coronary artery disease History of hypertension History of pressure ulcer Plan: 1. Patient to remain nonweightbearing on the left lower extremity; patient may work with physical therapy to increase mobility and ambulation 2. Keep dressing over the left hip clean, dry, and intact 3. Discontinue Dawn catheter when patient is able to increase mobility and ambulation 4. Continue pain control with oral [place] and IV Dilaudid as needed for pain control; patient may continue with fentanyl patch as prescribed by medicine 5. Continue with anticoagulation therapy with aspirin 325 mg twice a day 6. Medicine to continue following the patient for her other medical diagnosis including coronary artery disease, hypertension, and history of pressure ulcer. 7. We'll continue to follow the patient closely; depending on the patient's progress, we may plan for discharge over the next 1-2 days back to the rehabilitation facility where she resides 8. Patient can follow-up with Naresh Hoskins PA-C or Dr. Kolby Hidalgo at [facility] in 2-3 weeks following discharge
--- NOTE | 2020-12-19 14:03 | CDI ---
Documentation Clarification Form Date: 12/19/2020 01:52:22 PM From: Mavis AbdulBRITTNEY, CCDS Admit Date: 12/17/2020 08:46:00 PM Patient Name: Mavis Farr Visit Number: [id number] Discharge Date: ATTENTION: The Clinical Documentation Specialists (CDI) and [facility] Coding Staff appreciate your assistance in clarifying documentation. Please respond to the clarification below the line at the bottom and electronically sign. The CDI & [facility] Coding staff will review the response and follow-up if needed. Please note: Queries are made part of the Legal Health Record. If you have any questions, please contact the author of this message via ITS. Dr. Nando Velazquez: A pressure ulcer is documented in the 12/18 Medical Management Consult without further specificity. A Stage III Left Hip Pressure Ulcer is also documented by nursing in the Nutrition Diagnosis note. Additional clarification regarding the site & stage of the pressure ulcer is requested. History/Risk Factors per the 12/17 ED Note: Resides in a [facility], CAD, CT, GERD, Hypertension, Hypertensive Cardiovascular Disease, OA, Overactive Bladder, Lumbar Vertebrae Fracture, MRSA infection Buttock 03/2020, Esophagus Stricture. Per the 12/18 Orthopedic H/P: Patient had a previous Right IT Hip Fracture requiring surgical intervention in September 2019 and subsequent fall on 11/21/2020. Clinical Indicators: Presented to the ED on 12/17 via EMS from a nursing facility after a fall & concern for Left IT Femur Fracture. Procedure 12/18: IT Hip screw placement w/Fluoroscopic guidance and Closed Reduction of Left IT Femoral Hip Fracture. Treatment 12/17: IV Toradol, IV Morphine, IV fluid 1,000 mls @ 75 mls/hr q13Hr, po Aspirin, IV Cefazolin, Topical Lidocaine. Please clarify the stage and location of the pressure ulcer, if known: [ ] Stage 1 Pressure Ulcer [ xx ] Stage 2 Pressure Ulcer [ ] Stage 3 Pressure Ulcer [ ] Stage 4 Pressure Ulcer [ ] Unstageable Pressure ulcer [ ] Other condition, please specify [ ] Unable to determine (Template Last Revised: July 2020) MTDD
[2020-12-19] MEDS: BACLOFEN 10 MG TAB PO SCH (20:05)
[2020-12-19] MEDS: ALPRAZolam 0.25 MG TAB PO SCH (20:05)
[2020-12-19] MEDS: MELATONIN 3 MG TABLET PO SCH (20:06)
[2020-12-20] MEDS: KETOROLAC 15 MG/ML 1 ML VIAL IVP PRN (04:38)
[2020-12-20 07:29] VITALS: BP 138/65; PULSE 68; RESP 14; TEMP 97.8
[2020-12-20] MEDS: SENNOSIDES-DOCUSATE SODIUM 1 EACH TAB PO SCH (09:20)
[2020-12-20] MEDS: ASPIRIN 325 MG TAB PO SCH (09:20)
[2020-12-20] MEDS: DOCUSATE 100 MG CAP PO SCH (09:20)
[2020-12-20] MEDS: DULoxetine HCL 30 MG CAPSULE.DR PO SCH (09:20)
[2020-12-20] MEDS: atenoloL 25 MG TAB PO SCH (09:20)
[2020-12-20] MEDS: PANTOPRAZOLE 40 MG TABLET PO SCH (09:21)
[2020-12-20] MEDS: KETOTIFEN 0.025% OPHTH DROPS 5 ML BTL BOTH EYES SCH (09:22)
[2020-12-20] MEDS: amLODIPine 5 MG TAB PO SCH (09:22)
[2020-12-20] MEDS: LIDOCAINE 5% PATCH TOPICAL SCH (09:23)
--- NOTE | 2020-12-20 11:00 | P.DS ---
Providers Date of admission: 12/17/20 20:46 Attending physician: Massimo Hidalgo Consults: 12/17/20 20:46 Consult Physician Stat Consulting Provider: Nando Velazquez Reason/Comments: medicine management Do you want consulting provider notified?: Already Contacted Primary care physician: Nando Velazquez [facility] Course: The patient presented on the day of admission as per their operative note. She had had a fall a few weeks prior to her admission and was having trouble with her left hip. She did not have obvious fracture at that point but continue to have problems and eventually underwent further imaging which showed evidence of a minimally to nondisplaced intertrochanteric hip fracture at the left femur. She was admitted this regard for definitive treatment of the fracture. She underwent her surgical procedure for her left intertrochanteric hip fracture as per her operative note. Physical Exam She remains afebrile. She is conversant today at bedside presently. The incision site is clean dry and intact. There is no erythema no drainage. There is no purulence no evidence of infection. Abdomen soft and nontender. Chest has good excursion with deep inspiration and expiration. The patient has active and passive range of motion intact at the upper and lower extremities. There is no acute change in neurologic status. Hospital Course Postoperative day #2 status post left hip intramedullary hip screw for left femur intertrochanteric hip fracture which was traumatic due to a fall. The patient has been making good progress postoperatively. They have completed the prophylactic antibiotics without any signs or symptoms of infection. The patient has been able to advance their diet, and is tolerating diet adequately. The pain was initially controlled with IV medications and is now controlled appropriately with oral medications. The patient has been able to increase their mobilization. The patient has progressed appropriately. I think they are in good stable cond ition for discharge today back to her nursing home facility. They will be sent home with appropriate prescriptions. I answered their questions to the best of my ability in a language that they can understand and they are agreeable with the plan. I also discussed the case with Dr. Velazquez her primary care physician and he is in agreement. They will follow up as directed in approximately 2 weeks or sooner should having problems. Patient Condition at Discharge: Serious Plan - Discharge Summary Discharge Rx Participant: Yes New Discharge Prescriptions: New Benzocaine/Menthol Lozeng [Cepacol lozenge] 1 each MUCOUS MEM Q4HR PRN lozenge PRN Reason: Sore Throat Lidocaine 5% Patch [Lidoderm 5% Patch] 1 patch TOPICAL DAILY patch HYDROcodone/APAP 5-325MG [[place] 5-325] 1 each PO Q6HR PRN #12 tab PRN Reason: Pain Aspirin 325 mg PO BID tab Continue hydroCHLOROthiazide 25 mg PO MOWEFR@0800 atenoloL [Atenolol] 25 mg PO DAILY@0800 Baclofen 5 mg PO BID PRN PRN Reason: BACK PAIN Baclofen 5 mg PO HS@2100 Calcium Carbonate [Tums] 1,000 mg PO Q8H PRN PRN Reason: STOMACH ACHE DULoxetine HCL [Cymbalta] 30 mg PO DAILY@0800 Magnesium Hydroxide [Milk of Magnesia] 2,400 mg PO DAILY PRN PRN Reason: Constipation Melatonin 3 mg PO HS@2100 Pantoprazole [Protonix] 40 mg PO DAILY@0800 Polyethylene Glycol 3350 [Miralax] 17 gm PO Q48H Simethicone [Gas-X] 125 mg PO DAILY PRN PRN Reason: GAS Na Phos,M-B/Na Phos,Di-Ba [Fleet Adult] 133 ml RECTAL DAILY PRN PRN Reason: Constipation Acetaminophen [Tylenol 8 Hour] 1,300 mg PO Q4H PRN PRN Reason: Pain Acetaminophen Tab [Tylenol] 650 mg PO BID@0800,2000 Sodium Chloride [Saline Nasal Jackson] 1 spray EA NOSTRIL HS@2100 Magic Cup 1 can PO Q48H Lidocaine 5% Cream 1 applicate TOPICAL HS PRN PRN Reason: WOUNDS fentaNYL 50MCG/HR PATCH [Duragesic 50MCG/HR] 50 mcg TRANSDERM Q72H #1 patch traMADol HCl [Ultram] 25 mg PO Q8HR PRN #28 tab PRN Reason: Pain bisacodyL [Dulcolax] 10 mg RECTAL DAILY PRN PRN Reason: Constipation Acetaminophen Tab [Tylenol] 500 mg PO Q6H PRN PRN Reason: Pain Olopatadine HCl [Patanol] 1 drop BOTH EYES BID@0800,1700 Sennosides-Docusate Sodium [Senokot-S] 2 tab PO BID@0800,1700 Lactose-Reduced Food [Ensure Plus] 1 can PO BID@0800,1700 Ergocalciferol (Vitamin D2) [Drisdol (50,000 Iu)] 1,250 mcg PO FR amLODIPine [Norvasc] 5 mg PO DAILY@0800 Liquacel 30 ml PO DAILY@1200 Polyethylene Glycol 3350 [Miralax] 17 gm PO Q24H PRN PRN Reason: Constipation Loperamide HCl [Imodium A-D] 2 mg PO ACHS PRN PRN Reason: Loose Stool ALPRAZolam [Xanax] 0.25 mg PO HS@2100 #3 tab Discontinued Aspirin EC [Ecotrin Low Dose] 81 mg PO BID@0800,1700 Discharge Medication List hydroCHLOROthiazide 25 mg PO MOWEFR@0800 10/22/18 [History] Baclofen 5 mg PO BID PRN 10/15/19 [History] Baclofen 5 mg PO HS@209910/15/19 [History] Calcium Carbonate [Tums] 1,000 mg PO Q8H PRN 10/15/19 [History] DULoxetine HCL [Cymbalta] 30 mg PO DAILY@0800 10/15/19 [History] Magnesium Hydroxide [Milk of Magnesia] 2,400 mg PO DAILY PRN 10/15/19 [History] Melatonin 3 mg PO HS@209910/15/19 [History] Pantoprazole [Protonix] 40 mg PO DAILY@0800 10/15/19 [History] Polyethylene Glycol 3350 [Miralax] 17 gm PO Q48H 10/15/19 [History] Simethicone [Gas-X] 125 mg PO DAILY PRN 10/15/19 [History] atenoloL [Atenolol] 25 mg PO DAILY@0800 10/15/19 [History] Acetaminophen Tab [Tylenol] 500 mg PO Q6H PRN 12/17/20 [History] Acetaminophen Tab [Tylenol] 650 mg PO BID@0800,199912/17/20 [History] Acetaminophen [Tylenol 8 Hour] 1,300 mg PO Q4H PRN 12/17/20 [History] Ergocalciferol (Vitamin D2) [Drisdol (50,000 Iu)] 1,250 mcg PO FR 12/17/20 [History] Lactose-Reduced Food [Ensure Plus] 1 can PO BID@0800,1700 12/17/20 [History] Lidocaine 5% Cream 1 applicate TOPICAL HS PRN 12/17/20 [History] Liquacel 30 ml PO DAILY@1200 12/17/20 [History] Loperamide HCl [Imodium A-D] 2 mg PO ACHS PRN 12/17/20 [History] Magic Cup 1 can PO Q48H 12/17/20 [History] Na Phos,M-B/Na Phos,Di-Ba [Fleet Adult] 133 ml RECTAL DAILY PRN 12/17/20 [History] Olopatadine HCl [Patanol] 1 drop BOTH EYES BID@0800,1700 12/17/20 [History] Polyethylene Glycol 3350 [Miralax] 17 gm PO Q24H PRN 12/17/20 [History] Sennosides-Docusate Sodium [Senokot-S] 2 tab PO BID@0800,1700 12/17/20 [History] Sodium Chloride [Saline Nasal Jackson] 1 spray EA NOSTRIL HS@2100 12/17/20 [History] amLODIPine [Norvasc] 5 mg PO DAILY@0800 12/17/20 [History] bisacodyL [Dulcolax] 10 mg RECTAL DAILY PRN 12/17/20 [History] ALPRAZolam [Xanax] 0.25 mg PO HS@2100 #3 tab 12/20/20 [Rx] Aspirin 325 mg PO BID tab 12/20/20 [Rx] Benzocaine/Menthol Lozeng [Cepacol lozenge] 1 each MUCOUS MEM Q4HR PRN lozenge 12/20/20 [Rx] HYDROcodone/APAP 5-325MG [[place] 5-325] 1 each PO Q6HR PRN #12 tab 12/20/20 [Rx] Lidocaine 5% Patch [Lidoderm 5% Patch] 1 patch TOPICAL DAILY patch 12/20/20 [Rx] fentaNYL 50MCG/HR PATCH [Duragesic 50MCG/HR] 50 mcg TRANSDERM Q72H #1 patch 12/20/20 [Rx] traMADol HCl [Ultram] 25 mg PO Q8HR PRN #28 tab 12/20/20 [Rx] Follow up Appointment(s)/Referral(s): Nando Velazquez MD [Primary Care Provider] - 1 Week (at [facility]) Naresh Hoskins PAC [PHYSICIAN COOLER ROOM WORKER] - 2 Weeks (Patient may follow-up with Naresh Hoskins PA-C or Dr. Kolby Hidalgo at [facility] in 2-3 weeks following discharge. ) Activity/Diet/Wound Care/Special Instructions: 1. Nonweightbearing on the left lower extremity 2. Keep dressing over the left hip clean, dry, and intact 3. Patient may shower with dressing intact 4. If dressing remains dry of the next 72 hours dressing may be removed in patient may shower without a dressing at that time 5. Patient may apply ice for comfort over the left hip as needed 6. Take medications as prescribed Discharge Disposition: TRANSFER TO SNF/ECF
--- NOTE | 2020-12-20 11:53 | P.PN ---
Subjective Progress Note Date: 12/19/20 HISTORY OF PRESENT ILLNESS This is an 89-year-old female patient of Dr. Velazquez, residing at [facility] as long- term resident, with past medical history of coronary artery disease, hyper tension hypertensive cardiovascular disease, overactive bladder, generalized osteoarthritis, esophageal stricture, patient was last hospitalized in September 2019 at which time she was treated for right hip fracture. Patient had a fall on November 21 and is unable to ambulate. Patient has had multiple x-rays that have been negative. Patient presented with pressure ulcer Patient was initially sent into the hospital for CAT scan of the left hip which revealed intratrochanteric fracture extending from the superior aspect of the lesser trochanter to the medial aspect of the greater trochanter. There appears to be some impaction of the fracture. Patient was then advised to go to the emergency center for further evaluation and treatment. Patient has been afebrile, HR 66, BP 135/82, PO 95% on room air. CBC unremarkable. Electrolytes normal, BUN 30, creatinine 0.66, BS 109. Alkaline phoshatase 199. Urinalysis negative. 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 Chest x-ray shows mild infiltrates in the right perihilar region along the minor fissure. Correlate for atelectasis or pneumonia. Patient admitted to the med-surg floor to orthopedic services and we have been asked to follow patient for medical management. Patient is seen this morning in the emergency center waiting for [facility] bed. 12/19: Patient is status post intertrochanteric hip screw placement completed yesterday by Dr. Hidalgo. Patient is oriented 1 today. Patient's mental status fluctuates and this is normal for the patient. Dawn catheter to be removed today. Patient has been afebrile, heart rate 78, blood pressure 145/60, pulse ox 90% on room air. Plan is for patient to return to [facility] most likely will occur tomorrow. REVIEW OF SYSTEMS Constitutional: No fever, no chills, no night sweats. No weight change. No weakness, fatigue or lethargy. No daytime sleepiness. EENT: No headache. No blurred vision or double vision, no loss of vision. No loss of Hearing, no ringing in the ears, no dizziness. No nasal drainage or congestion. No epistaxis. No sore throat. Lungs: No shortness of breath, cough, no sputum production. No wheezing. Cardiovascular: No chest pain, no lower extremity edema. No palpitations. No paroxysmal nocturnal dyspnea. No orthopnea. No lightheadedness or dizziness. No syncopal episodes. Abdominal: No abdominal pain. No nausea, vomiting. No diarrhea. No constipation. No bloody or tarry stools.. No loss of appetite. Genitourinary: No dysuria, increased frequency, urgency. No urinary retention. Musculoskeletal: No myalgias. No muscle weakness, no gait dysfunction, no frequ ent falls. No back pain. No neck pain. Integumentary: No wounds, no lesions. No rash or pruritus. No unusual bruising. No change in hair or nails. Neurologic: No aphasia. No facial droop. Reported change in mentation-normal for patient's mental status to fluctuate. No head injury. No headache. No paralysis. No paresthesia. Psychiatric: No depression. No anxiety. No mood swings. Endocrine: No abnormal blood sugars. No weight change. No excessive sweating or thirst. No cold intolerance. PHYSICAL EXAMINATION Gen: This is an 89-year-old female patient resting in bed and appears to be in no acute distress. No respiratory distress noted. HEENT: Head is atraumatic, normocephalic. Pupils equal, round. Sclerae is anicteric. NECK: Supple. No JVD. No lymphadenopathy. No thyromegaly. LUNGS: Clear to auscultation. No wheezes or rhonchi. No intercostal retrac tions. HEART: Regular rate and rhythm. Systolic murmur at the right sternal border and a systolic murmur at the apex. ABDOMEN: Soft. Bowel sounds are present. No masses. No tenderness. EXTREMITIES: No pedal edema. No calf tenderness. Tenderness at the left hip. MIld lateral rotation of the left leg NEUROLOGICAL: Patient is awake, alert and oriented x3. Cranial nerves 2 through 12 are grossly intact. ASSESSMENT AND PLAN 1. Intertrochanetic fracture of the left femur status post intertrochanteric hip screw placement, 12/18. Continue current pain management, incentive spirometry to reduce incidence of atelectasis and hospital-acquired pneumonia, PT and OT per orthopedics. 2. Hypertension and hypertensive cardio vascular disease. Continue patient on amlodipine 10 mg once every day, atenolol 25 mg daily and hydrochlorothiazide 25 mg orally once every day. 3. Osteoarthritis. Continue current pain management. Continue current pain management. 4. 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 Continue Ultram 25 mg every 8 hours as needed, Lidoderm patch topically daily, fentanyl patch 50 g per hour every 72 hours, baclofen 5 mg twice daily as needed and at bedtime. 5. Overactive bladder. 6. Esophageal stricture. 7. Severe protein calorie malnutrition with BMI of 19. Continue Magic cup, Ens ure Plus twice daily. 8. Generalized anxiety disorder and Insomnia. Continue Xanax 0.25 mg at bed time, Cymbalta 30 mg daily, melatonin 3 mg at bedtime,. 9. GI prophylaxis and gastroesophageal reflux disease. Continue Protonix 40 mg daily. 10. DVT prophylaxis per orthopedics. DISCHARGE PLAN Return to [facility] on . Impression and plan of care have been directed as dictated by the signing physician. Michell Altamirano nurse practitioner acting as scribe for signing physician. Objective - Vital Signs Vital signs: Vital Signs Temp 97.9 F 12/19/20 06:54 Pulse 78 12/19/20 06:54 Resp 12 12/19/20 06:54 BP 145/60 12/19/20 06:54 Pulse Ox 98 12/19/20 06:54 Intake & Output 12/18/20 12/19/20 12/19/20 18:59 06:59 18:59 Intake Total 751.5 Output Total 1500 900 Balance -748.5 -900 Intake: IV 751.5 Output: Urine 1300 900 Estimated Blood Loss 200 Other: Voiding Method Indwelling Catheter Indwelling Catheter - Labs CBC & Chem 7: 12/18/20 19:48 12/17/20 20:45 Labs: Abnormal Lab Results - Last 24 Hours (Table) 12/18/20 Range/Units 19:48 RBC 3.33 L (3.80-5.40) m/uL Hgb 10.6 L (11.4-16.0) gm/dL Hct 33.7 L (34.0-46.0) % MCV 101.4 H (80.0-100.0) fL
--- NOTE | 2020-12-20 12:00 | P.PN ---
Subjective Progress Note Date: 12/20/20 HISTORY OF PRESENT ILLNESS This is an 89-year-old female patient of Dr. Velazquez, residing at [facility] as long- term resident, with past medical history of coronary artery disease, hyper tension hypertensive cardiovascular disease, overactive bladder, generalized osteoarthritis, esophageal stricture, patient was last hospitalized in September 2019 at which time she was treated for right hip fracture. Patient had a fall on November 21 and is unable to ambulate. Patient has had multiple x-rays that have been negative. Patient presented with pressure ulcer Patient was initially sent into the hospital for CAT scan of the left hip which revealed intratrochanteric fracture extending from the superior aspect of the lesser trochanter to the medial aspect of the greater trochanter. There appears to be some impaction of the fracture. Patient was then advised to go to the emergency center for further evaluation and treatment. Patient has been afebrile, HR 66, BP 135/82, PO 95% on room air. CBC unremarkable. Electrolytes normal, BUN 30, creatinine 0.66, BS 109. Alkaline phoshatase 199. Urinalysis negative. 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 Chest x-ray shows mild infiltrates in the right perihilar region along the minor fissure. Correlate for atelectasis or pneumonia. Patient admitted to the med-surg floor to orthopedic services and we have been asked to follow patient for medical management. Patient is seen this morning in the emergency center waiting for [facility] bed. 12/19: Patient is status post intertrochanteric hip screw placement completed yesterday by Dr. Hidalgo. Patient is oriented 1 today. Patient's mental status fluctuates and this is normal for the patient. Dawn catheter to be removed today. Patient has been afebrile, heart rate 78, blood pressure 145/60, pulse ox 90% on room air. Plan is for patient to return to [facility] most likely will occur tomorrow. 12/20: Patient's mental status is at baseline. She is complaining of dry lips but otherwise no new complaints. She's been afebrile, heart rate 68, blood pressure 138/65, pulse ox 94% on room air. Patient is cleared medically for transfer and discharge back to [facility]. Medication reconciliation completed. REVIEW OF SYSTEMS Constitutional: No fever, no chills, no night sweats. No weight change. No weakness, fatigue or lethargy. No daytime sleepiness. EENT: No headache. No blurred vision or double vision, no loss of vision. No loss of Hearing, no ringing in the ears, no dizziness. No nasal drainage or congestion. No epistaxis. No sore throat. Lungs: No shortness of breath, cough, no sputum production. No wheezing. Cardiovascular: No chest pain, no lower extremity edema. No palpitations. No paroxysmal nocturnal dyspnea. No orthopnea. No lightheadedness or dizziness. No syncopal episodes. Abdominal: No abdominal pain. No nausea, vomiting. No diarrhea. No constipation. No bloody or tarry stools.. No loss of appetite. Genitourinary: No dysuria, increased frequency, urgency. No urinary retention. Musculoskeletal: No myalgias. No muscle weakness, no gait dysfunction, no frequent falls. No back pain. No neck pain. Integumentary: No wounds, no lesions. No rash or pruritus. No unusual bruising. No change in hair or nails. Neurologic: No aphasia. No facial droop. Reported change in mentation-normal for patient's mental status to fluctuate. No head injury. No headache. No paralysis. No paresthesia. Psychiatric: No depression. No anxiety. No mood swings. Endocrine: No abnormal blood sugars. No weight change. No excessive sweating or thirst. No cold intolerance. PHYSICAL EXAMINATION Gen: This is an 89-year-old female patient resting in bed and appears to be in no acute distress. No respiratory distress noted. HEENT: Head is atraumatic, normocephalic. Pupils equal, round. Sclerae is anicteric. NECK: Supple. No JVD. No lymphadenopathy. No thyromegaly. LUNGS: Clear to auscultation. No wheezes or rhonchi. No intercostal retractions. HEART: Regular rate and rhythm. Systolic murmur at the right sternal border and a systolic murmur at the apex. ABDOMEN: Soft. Bowel sounds are present. No masses. No tenderness. EXTREMITIES: No pedal edema. No calf tenderness. NEUROLOGICAL: Patient is awake, alert and oriented x2. Cranial nerves 2 through 12 are grossly intact. ASSESSMENT AND PLAN 1. Intertrochanetic fracture of the left femur status post intertrochanteric hip screw placement, 12/18. Continue current pain management, incentive spirometry to reduce incidence of atelectasis and hospital-acquired pneumonia, PT and OT per orthopedics. 2. Hypertension and hypertensive cardio vascular disease. Continue patient on amlodipine 10 mg once every day, atenolol 25 mg daily and hydrochlorothiazide 25 mg orally once every day. 3. Osteoarthritis. Continue current pain management. Continue current pain management. 4. 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 Continue Ultram 25 mg every 8 hours as needed, Lidoderm patch topically daily, fentanyl patch 50 g per hour every 72 hours, baclofen 5 mg twice daily as needed and at bedtime. 5. Overactive bladder. 6. Esophageal stricture. 7. Severe protein calorie malnutrition with BMI of 19. Continue Magic cup, Ensure Plus twice daily. 8. Generalized anxiety disorder and Insomnia. Continue Xanax 0.25 mg at bedtime, Cymbalta 30 mg daily, melatonin 3 mg at bedtime,. 9. GI prophylaxis and gastroesophageal reflux disease. Continue Protonix 40 mg daily. 10. DVT prophylaxis per orthopedics. DISCHARGE PLAN Return to [facility] under the care of Dr. Velazquez. Impression and plan of care have been directed as dictated by the signing physician. Michell Altamirano nurse practitioner acting as scribe for signing physician. Objective - Vital Signs Vital signs: Vital Signs Temp 97.8 F 12/20/20 07:28 Pulse 68 12/20/20 07:28 Resp 14 12/20/20 07:28 BP 138/65 12/20/20 07:28 Pulse Ox 94 L 12/20/20 07:28 Intake & Output 12/19/20 12/20/20 12/20/20 18:59 06:59 18:59 Output Total 2 Balance -2 Weight 46.947 kg Output: Stool 2 Other: Voiding Method Indwelling Catheter # Voids 2 - Labs CBC & Chem 7: 12/18/20 19:48 12/17/20 20:45
== END 2020-12-20 14:13 | DRG 480 ==
LOC: EC 20:04 → 4SSUR 20:46
PROVIDERS: ADMIT Orthopaedic Surgery Orthopaedic Surgery of the Spine; ATTEND Orthopaedic Surgery Orthopaedic Surgery of the Spine
PROC: 0QS736Z Reposition Left Upper Femur with Intramedullary Internal Fixation Device, Percutaneous Approach (ICD-10-PCS; principal; 2020-12-18 08:55)
DX: S72.145A Nondisplaced intertrochanteric fracture of left femur, initial encounter for closed fracture (principal); E43 Unspecified severe protein-calorie malnutrition; Z68.1 Body mass index [BMI] 19.9 or less, adult; M80.88XA Other osteoporosis with current pathological fracture, vertebra(e), initial encounter for fracture; L89.222 Pressure ulcer of left hip, stage 2; R74.8 Abnormal levels of other serum enzymes; I11.9 Hypertensive heart disease without heart failure; G47.00 Insomnia, unspecified; F41.1 Generalized anxiety disorder; H91.90 Unspecified hearing loss, unspecified ear; I25.10 Atherosclerotic heart disease of native coronary artery without angina pectoris; I25.2 Old myocardial infarction; I44.4 Left anterior fascicular block; K21.9 Gastro-esophageal reflux disease without esophagitis; K22.2 Esophageal obstruction; M15.9 Polyosteoarthritis, unspecified; N32.81 Overactive bladder; Z20.822 Contact with and (suspected) exposure to COVID-19; Z79.899 Other long term (current) drug therapy; Z80.0 Family history of malignant neoplasm of digestive organs; Z82.0 Family history of epilepsy and other diseases of the nervous system; Z82.49 Family history of ischemic heart disease and other diseases of the circulatory system; Z82.5 Family history of asthma and other chronic lower respiratory diseases; Z83.2 Family history of diseases of the blood and blood-forming organs and certain disorders involving the immune mechanism; Z90.710 Acquired absence of both cervix and uterus; Z91.81 History of falling; Z86.14 Personal history of Methicillin resistant Staphylococcus aureus infection; Z98.49 Cataract extraction status, unspecified eye
CPT/HCPCS: 36415; 71045; 73502; 80053; 81003; 85025; 85027; 85610; 85652; 85730; 86140; 86850; 86900; 86901; 87635; 88305; 93005; 99285

== ENCOUNTER → 2020-12-17 | Outpatient (CLI) | payer MEDICARE, OTHER ==
--- NOTE | 2020-12-17 18:38 | CT ---
EXAMINATION TYPE: CT hip LT wo con DATE OF EXAM: 12/17/2020 COMPARISON: 10/22/2018 HISTORY: Left hip pain post fall 1-[address] DLP: 202.4 mGycm Automated exposure control for dose reduction was used. Contrast: None Technique: Axial images 3 mm thick sections. Reconstructed images in the coronal plane FINDINGS: There is an acute fracture of the intertrochanteric region of the left hip. Femoral head articulates with the acetabulum. Mild degenerative joint changes. IMPRESSION: 1. INTERTROCHANTERIC FRACTURE EXTENDING FROM THE SUPERIOR ASPECT OF THE LESSER TROCHANTER TO THE MEDI AL ASPECT OF THE GREATER TROCHANTER. THERE APPEARS TO BE SOME IMPACTION OF THE FRACTURE. A Red level critical message alert has been initiated for Nando Velazquez MD via the [employer] on 12/17/2020 6:35 PM. This message alert has been sent to Nando Velazquez MD via t preferences provided by the clinician for the receipt of Radiology Critical Findings. Message ID [id number].
== END | disposition home or self-care (01) ==
LOC: RADCTMAIN 13:17
PROVIDERS: ATTEND Internal Medicine Geriatric Medicine
DX: S72.142A Displaced intertrochanteric fracture of left femur, initial encounter for closed fracture (principal)

== ENCOUNTER 2021-04-05 10:30 | Day surgery (SDC) | payer MEDICARE, OTHER ==
[2021-04-04 14:41] VITALS: BMI 21.0
[2021-04-05 10:56] VITALS: RESP 18; TEMP 98.2
[2021-04-05] MEDS ORDERED: LIDOCAINE 1% INJ 10MG/ML (20 ML MDV) ONE (11:21)
[2021-04-05] MEDS ORDERED: LIDOCAINE 1% INJ 10MG/ML (20 ML MDV) SQ ONE (11:52)
[2021-04-05 13:00] VITALS: BP 164/70; PULSE 68
--- NOTE | 2021-04-05 15:36 | IR ---
EXAMINATION TYPE: IR cvc insert >=5 years DATE OF EXAM: 04/05/2021 COMPARISON: NONE CLINICAL HISTORY: Infection Needs long-term intravenous access for antibiotics. PROCEDURE: Hand hygiene obtained with soap and water and alcohol-based hand rub. After informed consent, the skin overlying the left basilic vein was localized with ultrasound and no kelle to be compressible and patent. An ultrasound image was obtained and submitted on the patient's c serrano. The overlying skin was prepped and draped and Lidocaine was used for local anesthesia. A skin bijan was made with a scalpel. Access was gained to the vein under ultrasound guidance with a 21 gau ge needle and a 0.018 inch wire was advanced. Access site was dilated with Peel-Away sheath and cath eter tailored to the appropriate length and advanced such that the distal tip is at the cavoatrial ju nction. Spot image was obtained verifying placement. Catheter was fixed to the skin and a sterile d ressing was placed following hemostasis. Catheter was aspirated and flushed with saline. Patient wa s discharged in stable condition without complication. Maximal barrier technique is utilized. Ultras ound image is documented on the chart. Ultrasound used with sterile technique. Fluoro time and fluoroscopic images submitted to document procedure: 188 intraoperative C-arm images, 0.8 minutes fluoroscopy time IMPRESSION: STATUS POST ULTRASOUND AND FLUOROSCOPIC GUIDED PICC LINE PLACEMENT, READY FOR USE. THIS PROCEDURE WAS PERFORMED BY THE UNDERSIGNED.
== END 2021-04-05 12:56 | disposition home or self-care (01) ==
LOC: CATHCVL 10:30
PROVIDERS: ATTEND Radiology Diagnostic Radiology
DX: B99.9 Unspecified infectious disease (principal)
CPT/HCPCS: 36556; 76937; C1751; C1769; J2001; 36573

== ENCOUNTER 2021-08-24 18:08 | Emergency (ER) | payer OTHER ==
[2021-08-24 18:16] VITALS: RESP 16; TEMP 98.2
--- NOTE | 2021-08-24 19:06 | XR ---
EXAMINATION TYPE: XR Hip RT and AP Pelvis DATE OF EXAM: 08/24/2021 COMPARISON: 12/18/2020 HISTORY: Pain TECHNIQUE: 2 views FINDINGS: Pelvic ring is intact. Proximal femurs show bilateral hip nailing. Hip joint spaces are laith rly normal. No pelvic fracture. Sacroiliac joints are intact. IMPRESSION: Bilateral hip nailing. No acute fracture seen.
--- NOTE | 2021-08-24 19:08 | XR ---
EXAMINATION TYPE: XR chest 1V portable DATE OF EXAM: 08/24/2021 COMPARISON: 12/18/2020 HISTORY: Pain TECHNIQUE: Single view FINDINGS: There is patchy subsegmental atelectasis in the lung silva bilaterally. No heart failure. Heart appears enlarged. Thoracic aorta is atheromatous. No pleural effusion IMPRESSION: Atelectasis increased compared to old exam. No heart failure seen.
--- NOTE | 2021-08-24 19:20 | CT ---
EXAMINATION TYPE: CT brain iva wo con DATE OF EXAM: 08/24/2021 COMPARISON: 10/15/2019 HISTORY: Trauma from fall CT DLP: 1463.3 mGycm Automated exposure control for dose reduction was used. There is some cerebral cortical atrophy. There is moderate patchy hypodensity in the periventricular white matter. There is no mass effect or midline shift. There is no sign of intracranial hemorrhage. Calvarium is intact. There is normal aeration of the mastoid sinuses. There is cervical moderate lordotic curvature compensating for thoracic kyphotic deformity. There is anterior wedging of mid thoracic vertebra. There is no cervical spine compression fracture. There is some disc space narrowing at C6-7. Facet joints are intact. IMPRESSION: Spondylotic changes at C6-7. No acute abnormality of the cervical spine. No change. 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 No change compared to old exam.
[2021-08-24 19:21] LABS: Basophils % (A) 0 %; Eosinophils # (A) 0.2 k/uL (0-0.7); Eosinophils % (A) 3 %; HCT 37.8 % (34.0-46.0); HGB 12.2 gm/dL (11.4-16.0); Lymphocytes # (A) 0.9 k/uL (1.0-4.8); Lymphocytes % (A) 15 %; MCH 33.2 pg (25.0-35.0); MCHC 32.2 g/dL (31.0-37.0); Macrocytosis Slight; Monocytes # (A) 0.2 k/uL (0-1.0); Monocytes % (A) 4 %; Neutrophils # (A) 4.8 k/uL (1.3-7.7); Neutrophils % (A) 76 %; Platelet Count 238 k/uL (150-450); RBC 3.67 m/uL (3.80-5.40); RDW 14.7 % (11.5-15.5); WBC 6.3 k/uL (3.8-10.6)
--- NOTE | 2021-08-24 19:30 | ED ---
General Adult HPI - General Chief complaint: Fall Stated complaint: Fall, head injury Time Seen by Provider: 08/24/21 18:26 Source: patient, family, EMS, RN notes reviewed, old records reviewed Mode of arrival: EMS Limitations: altered mental status - History of Present Illness Initial comments: 89-year-old female history of dementia presents status post fall. Patient fell from her wheelchair striking the right forehead. This was not witnessed. She was noted to have a large hematoma by paramedics, dressing was placed. Uncertain if there was loss of consciousness. Patient is also complaining of right hip pain. She has previous history of bilateral hip fractures within the past several years. - Related Data Home Medications Medication Instructions Recorded Confirmed hydroCHLOROthiazide 25 mg PO MOWEFR@0800 10/22/18 08/24/21 Calcium Carbonate [Tums] 1,000 mg PO Q8H PRN 10/15/19 08/24/21 DULoxetine HCL [Cymbalta] 30 mg PO DAILY@0800 10/15/19 08/24/21 Magnesium Hydroxide [Milk of 2,400 mg PO DAILY PRN 10/15/19 08/24/21 Magnesia] Melatonin 3 mg PO HS@2100 10/15/19 08/24/21 Pantoprazole [Protonix] 40 mg PO DAILY@0800 10/15/19 08/24/21 Polyethylene Glycol 3350 [Miralax] 17 gm PO Q48H 10/15/19 08/24/21 Simethicone [Gas-X] 125 mg PO DAILY PRN 10/15/19 08/24/21 atenoloL 25 mg PO DAILY@0800 10/15/19 08/24/21 Acetaminophen Tab [Tylenol] 500 mg PO Q6H PRN 12/17/20 08/24/21 Acetaminophen Tab [Tylenol] 650 mg PO BID@0800,2000 12/17/20 08/24/21 Ergocalciferol (Vitamin D2) 1,250 mcg PO FR 12/17/20 08/24/21 [Drisdol (50,000 Iu)] Liquacel 30 ml PO DAILY@1200 12/17/20 08/24/21 Loperamide HCl [Imodium A-D] 2 mg PO ACHS PRN 12/17/20 08/24/21 Na Phos,M-B/Na Phos,Di-Ba [Fleet 133 ml RECTAL DAILY PRN 12/17/20 08/24/21 Adult] Polyethylene Glycol 3350 [Miralax] 17 gm PO Q24H PRN 12/17/20 08/24/21 Sennosides-Docusate Sodium 2 tab PO BID@0800,1700 12/17/20 08/24/21 [Senokot-S] Sodium Chloride [Saline Nasal 1 spray EA NOSTRIL HS@209912/17/20 08/24/21 [place]] amLODIPine [Norvasc] 5 mg PO DAILY@0800 12/17/20 08/24/21 bisacodyL [Dulcolax] 10 mg RECTAL DAILY PRN 12/17/20 08/24/21 Acetaminophen [Tylenol Arthritis] 1,300 mg PO Q4H PRN 08/24/21 08/24/21 Aspirin 325 mg PO BID@0800,1700 08/24/21 08/24/21 Baclofen 5 mg PO BID PRN 08/24/21 08/24/21 Baclofen 5 mg PO HS@209908/24/21 08/24/21 Benzocaine/Menthol Lozeng [Cepacol 1 lozenge MUCOUS MEM Q4HR PRN 08/24/21 08/24/21 lozenge] Cetirizine HCl 10 mg PO DAILY@0800 08/24/21 08/24/21 Ensure Enlive 237 ml PO BID@0800,1700 08/24/21 08/24/21 HYDROcodone/APAP 5-325MG [[place] 1 tab PO Q6HR PRN 08/24/21 08/24/21 5-325] Stepan Packet 1 packet PO BID@0800,1700 08/24/21 08/24/21 Lidocaine 5% Oint [Xylocaine 5% 1 applic TOPICAL DAILY PRN 08/24/21 08/24/21 Oint] Lidocaine 5% Patch [Lidoderm 5% 1 patch TOPICAL DAILY@0800 08/24/21 08/24/21 Patch] Multivitamin with Iron 1 tab PO DAILY@1700 08/24/21 08/24/21 [Multivitamins with Iron] traMADol HCl [Ultram] 25 mg PO Q8HR PRN 08/24/21 08/24/21 Previous Rx's Medication Instructions Recorded ALPRAZolam [Xanax] 0.25 mg PO HS@2100 #3 tab 12/20/20 fentaNYL 50MCG/HR PATCH [Duragesic 50 mcg TRANSDERM Q72H #1 patch 12/20/20 50MCG/HR] Allergies Allergy/AdvReac Type Severity Reaction Status Date / Time No Known Allergies Allergy Verified 08/24/21 19:06 Review of Systems ROS Statement: Those systems with pertinent positive or pertinent negative responses have been documented in the HPI. ROS Other: All systems not noted in ROS Statement are negative. Past Medical History Past Medical History: Coronary Artery Disease (CAD), GERD/Reflux, Hypertension, Memory Impairment, Myocardial Infarction (PR), Osteoarthritis (OA) Additional Past Medical History / Comment(s): esophageal stricture,hard of hearing. 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 Bladder suspension surgery 2, hysterectomy, cataract surgery 2. Past Anesthesia/Blood Transfusion Reactions: No Reported Reaction Past Psychological History: Depression Smoking Status: Never smoker - Past Family History Mother Family Medical History: Coronary Artery Disease (CAD) Father Family Medical History: Cancer Brother(s) Family Medical History: Blood Disorder Sister(s) Family Medical History: Cancer Daughter(s) Family Medical History: No Reported History Son(s) Family Medical History: Coronary Artery Disease (CAD) General Exam Limitations: altered mental status General appearance: alert, in no apparent distress Head exam: Present: normocephalic. Absent: atraumatic (Right frontal hematoma and abrasion) Eye exam: Present: PERRL Neck exam: Present: normal inspection, other (C-collar placed by paramedics). Absent: tenderness Respiratory exam: Present: decreased breath sounds. Absent: respiratory d istress Cardiovascular Exam: Present: regular rate, normal rhythm GI/Abdominal exam: Present: soft. Absent: distended, tenderness Extremities exam: Absent: full ROM (Pain with range of motion of the right hip, slight shortening, no rotation) Neurological exam: Present: alert Psychiatric exam: Present: normal affect, normal mood Skin exam: Present: warm, dry Course Vital Signs 08/24/21 08/24/21 08/24/21 18:09 18:17 20:28 Temperature 98.2 F Pulse Rate 76 Respiratory 16 Rate Blood Pressure 140/57 O2 Sat by Pulse 85 L 94 L 85 L Oximetry 08/24/21 08/24/21 08/24/21 20:30 20:55 21:02 Temperature Pulse Rate 67 70 Respiratory Rate Blood Pressure O2 Sat by Pulse 95 Oximetry - Reevaluation(s) Reevaluation #1: 08/24/21 21:29 Did have a discussion with the patient and her daughter who is at bedside about admission versus return to the assisted. The patient had previously checked a do not hospitalize status on her DO NOT RESUSCITATE paperwork. At this time we checked with the assisted to ensure that they could provide supplemental oxygen and they can. She will be discharged back to the assisted. EKG Findings - EKG Comments: EKG Findings:: Sinus rhythm left anterior fascicular block, rate is 70, UT interval 192, QRS duration 106, QTC [address] segment elevation. Medical Decision Making - Medical Decision Making 89-year-old female with an unwitnessed fall from assisted. Head injury. Head CT is performed, there is no intracranial hemorrhage, I did also x-ray the hips because she had some right hip pain. No acute fracture. Chest x-ray shows atelectasis. There is a do not hospitalize DO NOT RESUSCITATE order I did confirm this with the daughter we discussed the possibility of admission versus return to the assisted and ultimately decided that the patient would be better off by returning to the assisted. Her pain from the fall was treated with IV morphine. She does have some hypoxia in the high 80s which does respond to supplemental oxygen. We confirmed with the assisted that she would be able to be continued on oxygen and ultimately patient and family wishes to be discharged. - Lab Data Result diagrams: 08/24/21 19:12 08/24/21 19:12 Lab Results 08/24/21 08/24/21 08/24/21 Range/Units 19:12 19:12 19:12 WBC 6.3 (3.8-10.6) k/uL RBC 3.67 L (3.80-5.40) m/uL Hgb 12.2 (11.4-16.0) gm/dL Hct 37.8 (34.0-46.0) % MCV 103.0 H (80.0-100.0) fL MCH 33.2 (25.0-35.0) pg MCHC 32.2 (31.0-37.0) g/dL RDW 14.7 (11.5-15.5) % Plt Count 238 (150-450) k/uL MPV 8.0 Neutrophils % 76 % Lymphocytes % 15 % Monocytes % 4 % Eosinophils % 3 % Basophils % 0 % Neutrophils # 4.8 (1.3-7.7) k/uL Lymphocytes # 0.9 L (1.0-4.8) k/uL Monocytes # 0.2 (0-1.0) k/uL Eosinophils # 0.2 (0-0.7) k/uL Basophils # 0.0 (0-0.2) k/uL Macrocytosis Slight PT 11.5 (9.0-12.0) sec INR 1.1 (<1.2) APTT 24.3 (22.0-30.0) sec Sodium 137 (137-145) mmol/L Potassium 5.8 H (3.5-5.1) mmol/L Chloride 106 (98-107) mmol/L Carbon Dioxide 25 (22-30) mmol/L Anion Gap 6 mmol/L BUN 31 H (7-17) mg/dL Creatinine 0.74 (0.52-1.04) mg/dL Est GFR (CKD-EPI)AfAm 84 (>60 ml/min/1.73 sqM) Est GFR (CKD-EPI)NonAf 73 (>60 ml/min/1.73 sqM) Glucose 109 H (74-99) mg/dL Calcium 8.2 L (8.4-10.2) mg/dL Total Bilirubin 1.1 (0.2-1.3) mg/dL AST 54 H (14-36) U/L ALT 16 (4-34) U/L Alkaline Phosphatase 96 (38-126) U/L Total Protein 7.8 (6.3-8.2) g/dL Albumin 3.6 (3.5-5.0) g/dL Disposition Clinical Impression: Fall, Hematoma, Concussion Disposition: HOME SELF-CARE Condition: Fair Instructions (If sedation given, give patient instructions): Fall Prevention for Older Adults (ED), Hematoma (ED), Concussion (ED) Is patient prescribed a controlled substance at d/c from ED?: No Referrals: Nando Velazquez MD [Primary Care Provider] - 1-2 days Time of Disposition: 21:31
[2021-08-24] MEDS ORDERED: BACITRACIN OINT 1 EACH PACKET TOPICAL ONE (19:35)
[2021-08-24 19:45] LABS: INR 1.1 (<1.2); Partial Thromboplastin Time 24.3 sec (22.0-30.0); Prothrombin Time 11.5 sec (9.0-12.0)
[2021-08-24 19:53] LABS: Albumin 3.6 g/dL (3.5-5.0); Calcium 8.2 mg/dL (8.4-10.2); Total Bilirubin 1.1 mg/dL (0.2-1.3); Total Protein 7.8 g/dL (6.3-8.2)
[2021-08-24 19:54] LABS: Potassium 5.8 mmol/L (3.5-5.1)
[2021-08-24] MEDS ORDERED: MORPHINE SULFATE 2 MG/ML SYRINGE IVP STA (20:18)
[2021-08-24] MEDS ORDERED: IPRATROPIUM-ALBUTEROL 3 ML NEB INHALATION STA (20:22)
[2021-08-24 21:55] VITALS: BP 107/52; PULSE 75
== END 2021-08-24 22:30 | disposition home or self-care (01) ==
LOC: EC 18:08
DX: S06.0X0A Concussion without loss of consciousness, initial encounter (principal); J98.11 Atelectasis; I25.10 Atherosclerotic heart disease of native coronary artery without angina pectoris; K21.9 Gastro-esophageal reflux disease without esophagitis; I10 Essential (primary) hypertension; I25.2 Old myocardial infarction; M19.90 Unspecified osteoarthritis, unspecified site; F32.A Depression, unspecified; Z79.82 Long term (current) use of aspirin; Z79.899 Other long term (current) drug therapy; Z90.710 Acquired absence of both cervix and uterus; W05.0XXA Fall from non-moving wheelchair, initial encounter
CPT/HCPCS: 99285; 96374; 36415; 94640; 93005; 80053; 85025; 85610; 85730; 73502; 71045; 72125; 70450; J2270